=== PATIENT | female | born 1960 | race Caucasian/White ===

== ENCOUNTER → 2019-09-29 08:29 | Outpatient (BNVA) | payer OTHER, SELFPAY | PROVIDERS: Family Provider Nurse Practitioner; PCP Family Medicine; Visit Provider Specialist | DX: G43.711 Chronic migraine without aura, intractable, with status migrainosus (principal); F32.9 Major depressive disorder, single episode, unspecified; F17.210 Nicotine dependence, cigarettes, uncomplicated | CPT/HCPCS: 64615; J0585 ==

== ENCOUNTER → 2020-01-26 14:35 | Outpatient (BNVA) | payer OTHER, SELFPAY | PROVIDERS: Family Provider Nurse Practitioner; PCP Family Medicine; Visit Provider Specialist | DX: G43.711 Chronic migraine without aura, intractable, with status migrainosus (principal); F17.210 Nicotine dependence, cigarettes, uncomplicated | CPT/HCPCS: 64615; J0585 ==

== ENCOUNTER → 2020-04-26 13:30 | Outpatient (BNVA) | payer OTHER, SELFPAY | PROVIDERS: Family Provider Nurse Practitioner; PCP Nurse Practitioner; Visit Provider Specialist | DX: G43.711 Chronic migraine without aura, intractable, with status migrainosus (principal) | CPT/HCPCS: 64615; J0585 ==

== ENCOUNTER 2020-05-15 00:28 | Inpatient (IN) | payer OTHER, SELFPAY ==
[2020-05-15] VITALS (22 sets, daily range): BP systolic 81–132; BP diastolic 48–87; PULSE 65–112; RESP 12–20; TEMP 36.1–37.6; O2SAT 92–98; BMI 28.1
--- NOTE | 2020-05-15 | SCC_ITS ---
Procedure Done: Left open internal fixation distal comminuted 100% displaced supracondylar humerus fracture with intercondylar extension utilizing the following [place] implants: A 3 hole left posterior lateral distal humeral plate, a 3 hole left medial plate, and a 4 hole olecranon plate with locking and non-locking screws. 24.3 seconds of fluoroscopic guidance, for a cumulative dose of 0.33 mGy, was provided to Dr. Guillory by the radiology department. C-arm images of the LEFT elbow were saved for the patient's permanent record. BERTHA
--- NOTE | 2020-05-15 | XR_ITS ---
WS: [id number] INTRAOPERATIVE TECHNIQUE: 3 Spot fluoroscopic images for intraoperative purposes. FLUOROSCOPY TIME: 24.3 seconds CLINICAL INFORMATION: OR PICS COMPARISON: None. FINDINGS: Intraoperative changes plate and screw fixation distal humeral fracture with plate fixation involving the medial and lateral epicondyles. Olecranon plate and screw fixation. Screw fixation distal humeru s. Hardware appears in good position. Normal anatomic alignment. XR/XR elbow LT 2V [id number] IMPRESSION: Images obtained for intraoperative purposes.
--- NOTE | 2020-05-15 00:56 | ECG_ITS ---
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 Measurements Intervals [place] Rate: 65 P: 68 CT: 141 QRS: 65 QRSD: 93 T: 73 QT: 415 QTc: 433 Interpretive Statements SINUS RHYTHM POSSIBLE RIGHT VENTRICULAR CONDUCTION DELAY [RSR (QR) IN V1/V2] No previous ECG available for comparison Electronically Signed On 05-15-2020 17:26:03 CDT by Rolan Berg M.D. [id number]
--- NOTE | 2020-05-15 00:56 | XRR_ITS ---
PROCEDURE INFORMATION: Exam: XR Left Foot Complete Exam date and time: 05/15/2020 1:24 AM Age: 59 years old Clinical indication: Pain and injury or trauma; Fall; Initial encounter; Blunt trauma; Foot; Left; Injury date: 05/15/20 TECHNIQUE: Imaging protocol: XR Left foot. Views: Frontal, lateral, and oblique views. COMPARISON: No relevant prior studies available. FINDINGS: Bones/joints: No acute bony abnormality identified. Fifth DIP joint fusion, normal variant. Soft tissues: Normal. XR/XR foot LT min 3V* [id number] IMPRESSION: No acute bony injury identified.
--- NOTE | 2020-05-15 00:56 | XRR_ITS ---
PROCEDURE INFORMATION: Exam: XR Left Elbow Exam date and time: 05/15/2020 1:22 AM Age: 59 years old Clinical indication: Pain and injury or trauma; Fall; Initial encounter; Blunt trauma (contusions or hematomas; Elbow; Left; Injury date: 05/15/20 TECHNIQUE: Imaging protocol: XR Left elbow. Views: Frontal, lateral, and oblique views. COMPARISON: No relevant prior studies available. FINDINGS: Bones/joints: Oblique complete fracture of the supracondylar distal humerus, with 4.7 cm posterior displacement and approximately 3 cm of posterior overriding of the distal fragment, which maintains normal relationship with the radius and ulna. Soft tissues: Antecubital predominant soft tissue swelling. XR/XR elbow LT min 3V* [id number] IMPRESSION: Severely displaced distal humeral fracture. The displacement potentially impacts antecubital vascular structures. CT angiography should be considered.
--- NOTE | 2020-05-15 00:56 | CTR_ITS ---
PROCEDURE INFORMATION: Exam: CT Head Without Contrast Exam date and time: 05/15/2020 12:57 AM Age: 59 years old Clinical indication: Injury or trauma; Fall; Initial encounter; Blunt trauma (contusions or hematomas); With loss of consciousness; Not specified; Additional info: Head injury TECHNIQUE: Imaging protocol: Computed tomography of the head without contrast. Radiation optimization: All CT scans at this facility use at least one of these dose optimization techniques: automated exposure control; mA and/or kV adjustment per patient size (includes targeted exams where dose is matched to clinical indication); or iterative reconstruction. COMPARISON: MRI Head w/wo* [id number] 09/11/2015 1:17 PM RADIATION DOSE METRICS: Total DLP (mGy-cm): 822.28 FINDINGS: Brain: There are no areas of abnormally increased or decreased brain parenchymal attenuation. No abnormal intra-axial or extra-axial fluid collections are identified. There is no midline shift. No intracranial hemorrhage identified. Ventricles: The ventricular system is within normal limits for size and configuration. Bones/joints: Unremarkable as visualized. Sinuses: Visualized sinuses are unremarkable. No fluid levels. Mastoid air cells: Visualized mastoid air cells are well aerated. Soft tissues: Unremarkable. CT/CT head wo con* [id number] IMPRESSION: 1. No acute intracranial abnormality identified. Radiation Dose CTDIVOL = (mGy): DLP = 822.28 (mGy-cm)
--- NOTE | 2020-05-15 00:59 | W.ED.FALL ---
HPI - Fall General: Chief Complaint: Fall Stated Complaint: pain/ arm pain/ eye pain Time Seen by Provider: 05/15/20 00:53 Source: patient Mode of arrival: ambulatory Limitations: no limitations History of Present Illness: HPI Narrative: 59-year-old female states she got up to go to the bathroom tonight and felt lightheaded and passed out. Patient struck her head and has elbow and foot pain to the left elbow and left foot. She states her pain is sharp in nature and rates an 8 out of 10. She denies any neck pain. She denies any chest pain. She states she has had syncopal events in the past. 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, migraine, requiring Botox injections Dyslipidemia GERD (gastroesophageal reflux disease) Headache, chronic migraine without aura, intractable, with status Lyme disease Osteoporosis Seizure disorder Smoking Surgical History (Updated 05/15/20 @ 02:10 by Rolan Johnson MD) H/O: hysterectomy Family History Other Cancer Stroke Social History Smoking and tobacco status: current every day smoker Physical Exam Const: COMMON NORMALS: no acute distress, patient oriented x3 and healthy appearing HENMT: COMMON NORMALS: normocephalic HEAD & SCALP: normocephalic OTHER: small superficial less than 1cm lac to right eyelid Eye: COMMON NORMALS: Equal, round and reactive pupils present and EOMs intact bilaterally PUPIL: Yes Equal, round and reactive pupils present Neck/C-Spine: COMMON NORMALS: full ROM and supple Chest: COMMONS NORMALS: normal inspection of the chest and normal palpation of entire chest wall Resp: COMMON NORMALS: normal respiratory effort, No retractions, No use of accessory muscles and clear to auscultation bilaterally AUSCULTATION: clear to auscultation bilaterally Cardio: COMMON NORMALS: regular rate, regular rhythm and No murmurs present (Cardio) RATE: regular rate RHYTHM: regular rhythm GI: COMMON NORMALS: Normal to inspection, nondistended, normoactive bowel sounds present, Soft to palpation, non-tender and no masses PALPATION: Yes Soft to palpation Extremity: NARRATIVE EXTREMITY EXAM: obvious derformity to right elbow. distal pulses intact Neuro: COMMON NORMALS: patient oriented x3, moves all extremities and no focal motor deficits Psych: COMMON NORMALS: mental status grossly normal, Normal thought process present and cooperative THOUGHT PROCESS: Normal thought process present Skin: COMMON NORMALS: no rashes or lesions noted and no wounds GENERAL SKIN EXAM: no rashes or lesions noted Course Vital Signs: Vital signs: Vital Signs Temperature 97.0 F L 05/15/20 00:45 Pulse Rate 79 05/15/20 01:14 Respiratory Rate 16 05/15/20 01:14 Blood Pressure 129/74 05/15/20 01:14 Pulse Oximetry 97 05/15/20 01:14 MDM - Fall MDM Narrative: Medical decision making narrative: Patient presents with a syncopal event along with a distal humerus fracture to left arm. Patient has no signs of nerve or arterial damage. She has distal pulses intact and neuro exam is normal. She is able to extend her wrist and lift her thumb. She has sensation intact her hand. Patient did strike her head and head CT is normal. Head laceration is very superficial and small and does not require any sutures. I spoke to hospitalist will admit. Also spoke to orthopedist who is consulted. Lab Data: Labs: Lab Results 05/15/20 05/15/20 Range/Units 01:10 01:10 WBC 11.1 H (4.0-10.0) 10^3/ uL RBC 4.96 (4.1-5.3) 10^6/u L Hgb 14.1 (11.5-15.3) g/dL Hct 44.2 (37.0-47.0) % MCV 89.1 (81-99) fL MCH 28.4 (28.0-34.0) pg MCHC 31.9 (30.0-36.0) g/dL RDW 13.6 (12.1-15.1) % Plt Count 290 (130-400) 10^3/c mm MPV 9.5 (7.4-10.4) fL Neut % (Auto) 53.6 % Lymph % (Auto) 38.8 % Curry % (Auto) 5.4 % Eos % (Auto) 1.2 % Baso % (Auto) 0.5 % Neut # (Auto) 5.97 (1.8-7.7) 10^3/u L Lymph # (Auto) 4.3 (0.8-4.8) 10^3/u L Curry # (Auto) 0.6 (0.2-0.9) 10^3/u L Eos # (Auto) 0.1 (0.0-0.8) 10^3/u L Baso # (Auto) 0.1 (0.0-0.1) 10^3/u L Nucleated RBC % (a uto) 0 % Nucleated RBCs # 0.0 /100WBC Sodium 138 (136-145) mmol/L Potassium 3.4 L (3.5-5.1) mmol/L Chloride 98 (98-107) mmol/L Carbon Dioxide 29 (22-29) mmol/L Anion Gap 14.4 (5-19) BUN 22 H (6-20) mg/dL Creatinine 0.8 (0.5-0.9) mg/dL GFR Calculation 73.7 L (90-130) mL/min Glucose 124 H (65-115) mg/dL Calculated Osmolal ity 284 L (285-295) mOsm/k g Calcium 9.0 (8.5-10.5) mg/dL Imaging Data^: xr L elbow: Attestation: I personally reviewed and interpreted this imaging study as follows: My impression: distal humerus fx CT Head: Radiologist's impression: [address] [address] [address] Scan Report Signed Patient: Heydi Pereira Unit #: [id number] : 1960 Age/Sex: 59 / F ADM Date: 05/15/20 Loc: ER Room/Bed: Attending Dr: Ordering Provider/Ordering MD: Maury Braswell MD Date of Service: 05/15/20 Procedure(s): CT head wo con* [id number] Accession Number(s): [id number] Report Number: [id number] PROCEDURE INFORMATION: Exam: CT Head Without Contrast Exam date and time: 05/15/2020 12:57 AM Age: 59 years old Clinical indication: Injury or trauma; Fall; Initial encounter; Blunt trauma (contusions or hematomas); With loss of consciousness; Not specified; Additional info: Head injury TECHNIQUE: Imaging protocol: Computed tomography of the head without contrast. Radiation optimization: All CT scans at this facility use at least one of these dose optimization techniques: automated exposure control; mA and/or kV adjustment per patient size (includes targeted exams where dose is matched to clinical indication); or iterative reconstruction. COMPARISON: MRI Head w/wo* [id number] 09/11/2015 1:17 PM RADIATION DOSE METRICS: Total DLP (mGy-cm): 822.28 FINDINGS: Brain: There are no areas of abnormally increased or decreased brain parenchymal attenuation. No abnormal intra-axial or extra-axial fluid collections are identified. There is no midline shift. No intracranial hemorrhage identified. Ventricles: The ventricular system is within normal limits for size and configuration. Bones/joints: Unremarkable as visualized. Sinuses: Visualized sinuses are unremarkable. No fluid levels. Mastoid air cells: Visualized mastoid air cells are well aerated. Soft tissues: Unremarkable. CT/CT head wo con* [id number] IMPRESSION: 1. No acute intracranial abnormality identified EKG Data^: EKG 1: Attestation: I personally reviewed and interpreted this EKG as follows: EKG interpretation date: 05/15/20 EKG interpretation time: 01:04 Interpretation: Normal sinus rhythm heart rate [address] or T wave abnormalities QRS 93 QTc 426 Discharge Plan Discharge Patient Disposition: Admitted As Inpatient Admit Provider: Rolan Johnson Clinical Impression: Syncope Qualifiers: Syncope type: unspecified Qualified Code(s): R55 - Syncope and collapse Fracture of distal end of humerus Qualifiers: Encounter type: initial encounter Fracture type: closed Fracture morphology: unspecified fracture morphology Laterality: left Qualified Code(s): S42.402A - Unspecified fracture of lower end of left humerus, initial encounter for closed fracture Condition: Stable Referrals: Theresa Diez FNP [Primary Care Provider] - Coding Level of Care Code ED Yard General Car Supervisor for Chg Fwd Exam Comprehensive
[2020-05-15 01:21] LABS: Basophils # 0.1 10^3/uL (0.0-0.1); Basophils % 0.5 %; Eosinophils # 0.1 10^3/uL (0.0-0.8); Eosinophils % 1.2 %; Hematocrit 44.2 % (37.0-47.0); Hemoglobin 14.1 g/dL (11.5-15.3); Lymphocytes # 4.3 10^3/uL (0.8-4.8); Lymphocytes % 38.8 %; Mean Corpuscular HGB Conc 31.9 g/dL (30.0-36.0); Mean Corpuscular Hemoglobin 28.4 pg (28.0-34.0); Mean Corpuscular Volume 89.1 fL (81-99); Mean Platelet Volume 9.5 fL (7.4-10.4); Monocytes # 0.6 10^3/uL (0.2-0.9); Monocytes % 5.4 %; Neutrophils # 5.97 10^3/uL (1.8-7.7); Neutrophils % 53.6 %; Nucleated Red Blood Cells % 0 %; Platelet Count 290 10^3/cmm (130-400); Red Blood Count 4.96 10^6/uL (4.1-5.3); Red Cell Distribution Width 13.6 % (12.1-15.1); White Blood Count 11.1 10^3/uL (4.0-10.0)
[2020-05-15] MEDS: sodium chloride 0.9% 1,000 ML 999 ML IV (01:27)
[2020-05-15 01:37] LABS: Anion Gap 14.4 (5-19); Blood Urea Nitrogen 22 mg/dL (6-20); Carbon Dioxide 29 mmol/L (22-29); Chloride 98 mmol/L (98-107); Glomerular Filtration Rate 73.7 mL/min (90-130); Glucose 124 mg/dL (65-115); Osmolality Calculated 284 mOsm/kg (285-295); Potassium 3.4 mmol/L (3.5-5.1); Sodium 138 mmol/L (136-145)
[2020-05-15] MEDS: morphine 4 mg/mL SDV 1 mL IVP (01:44)
--- NOTE | 2020-05-15 02:09 | P.HP_ITS ---
Providers/Chief Complaint Primary Care Provider: MICHELE Chen Chief Complaint: fell/ arm pain/ eye pain History of Present Illness Heydi Pereira is a 59 year old female who carries history of intractable migraine requiring Botox injections, she failed multiple medications in the past ( Topamax, Celexa etc), Lyme disease sequelae with complications such as migraine, seizure came in today after sustaining a fall. Patient is stating that she was feeling nauseous around 11 PM after her dinner, she wanted to go to the bathroom, she passed out before entering her bathroom, she did not experience any chest pain, hallucinations, palpitations, shortness of breath, regained consciousness and noticed she was leaning against a wall and fell again on the floor on her left side, (has no memory of the events after that) she was moaning in pain, at this point her came to help her. is at the bedside who is endorsing that she was very confused and incoherent. He did not notice any seizure-like activities, urinary incontinence, tongue biting. Patient is stating that after her Lyme disease she had a grand mal seizure for which she was put on phenobarbital for quite some time which was discontinued due to side effects. Her last seizure was long time ago. She is denying fever, vomiting, change in bowel movements, dysuria. She is denying previous history of stroke, [place], coronary disease. Diagnostics in the ER revealed normal hemodynamics, EKG showing right bundle branch block otherwise sinus rhythm, imaging revealed left humeral fracture displaced, no vascular compromise of left arm, I have requested d-dimer and prolactin level, glucose 124 Dr. Guillory has been consulted Review of Systems Const: Reports: chills and body aches Eyes: Denies: change in vision ENMT: Denies: throat pain Card: Denies: chest pain Resp: Denies: dyspnea GI: Reports: nausea; Denies: abdominal pain or vomiting : Denies: flank pain Musc: Reports: extremity swelling, joint pain and muscle weakness Skin/Breast: Reports: new lesions (Bruising and petechiae of left foot); Denies: rash Neuro: Denies: headache(s) Psych: Denies: anxiety Endo: Denies: polyuria Thomas/Lymph: Denies: easy bruising All/Imm: Denies: urticaria Medications/Allergies Home Medications Medication Instructions Recorded Confirmed Last Taken Type albuterol sulfate 90 mcg/actuation 2 puff INHALATION Q6H PRN #8.5 gm 09/27/19 04/26/20 Unknown Rx aerosol inhaler duloxetine 20 mg capsule,delayed 20 mg PO ONCE cap 09/27/19 04/26/20 Unknown History release azithromycin 250 mg tablet 250 mg PO DAILY tab 09/29/19 04/26/20 Unknown History magnesium 250 mg tablet 500 mg PO DAILY tab 09/29/19 04/26/20 Unknown History niacin 500 mg tablet 250 mg PO DAILY tab 09/29/19 04/26/20 Unknown History Allergies Allergy/AdvReac Type Severity Reaction Status Date / Time No Known Allergies Allergy Verified 04/26/20 13:46 PFSH Acute PFSH: Medical History Cognitive complaints 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, migraine, requiring Botox injections Dyslipidemia GERD (gastroesophageal reflux disease) Headache, chronic migraine without aura, intractable, with status Lyme disease Osteoporosis Seizure disorder Smoking Surgical History H/O: hysterectomy Family History Other Cancer Stroke Social History Smoking and tobacco status: current every day smoker cigarettes [ Other cigarette details: Half a pack smoker ] Alcohol intake: never Substance/Drug Use: never Household members: spouse Housing: House Vitals/I&O/Wt Last Vital Signs Temp 97.0 F L 05/15/20 00:45 Pulse 79 05/15/20 01:14 Resp 16 05/15/20 01:14 BP 129/74 05/15/20 01:14 Pulse Ox 97 05/15/20 01:14 Weight last 48 hrs Weight 83.915 kg Physical Exam Narrative: EXAM NARRATIVE: Very pleasant middle-age female currently comfortable with arm sling on left side No vascular compromise of left arm, weak wrist extension S1, S2 no tachycardia heart failure Abdomen soft nontender nondistended bowel sound present EOMI, PERRLA No neurological deficit No tongue bite Lungs are clear to auscultation Lower extremity no edema gangrene or ulcer Left foot petechiae and bruises on dorsal side without any vascular compromise Appropriate mood and affect Patient is awake alert oriented x3 GCS 15 Data : 05/15/20 01:10 05/15/20 01:10 A&P Assessment and plan (1) Syncope: Status: Acute Qualifiers: Syncope type: unspecified Qualified Code(s): R55 - Syncope and collapse (2) Fracture of distal end of humerus: Status: Acute Qualifiers: Encounter type: initial encounter Fracture morphology: unspecified fracture morphology Fracture type: closed Laterality: left Qualified Code(s): S42.402A - Unspecified fracture of lower end of left humerus, initial encounter for closed fracture (3) Depression: Status: Inactive (4) Headache, chronic migraine without aura, intractable, with status: Status: Inactive Additional A&P Information Left humeral fracture after syncopal event Syncopal event most likely secondary to seizure (confusion noticed by her ), most likely post ictal phase Current glucose 124, sodium 138, no signs of dehydration, less likely to be vasovagal, CT head unremarkable EKG without any arrhythmia Right bundle branch block without significant interval changes I have requested d-dimer and prolactin level Patient not on any antiepileptics however has history of seizures in the past with Lyme disease sequelae Admit to [facility] I would use Ativan for breakthrough seizures and avoid initiation of antiepileptics at this point Patient is following up with Dr. Espinosa for her migraine Considering this syncopal event I would recommend an echocardiogram to rule out any wall motion abnormality which could have caused syncopal event, RCRI class I risk of complications Intractable migraine: Patient is following up with Dr. Espinosa for her Botox injections N.p.o. Hypokalemia: Repleted Full code DVT prophylaxis SCDs to avoid anticoagulation in anticipation of surgical intervention Attestations Medical Necessity Statement*: Anticipating stay in the hospital to cross more than 2 midnights currently need surgical intervention for humeral fracture and monitoring for breakthrough seizures Time Spent in Patient Care: (>than 50% of time spent in counselling and/or direct pt care on unit) . 40mins Coding Level of Care Code Acute Welder Setter Electron Beam Machine for Chg Fwd Diagnoses Syncope R55 Syncope type: unspecified Fracture of distal end of humerus S42.402A Encounter type: initial encounter Fracture morphology: unspecified fracture morphology Fracture type: closed Laterality: left Depression F32.9 Headache, chronic migraine without aura, intractable, with status G43.711
[2020-05-15 02:56] LABS: INR 0.97 (0.8-1.2)
[2020-05-15 02:59] LABS: D Dimer 2.34 ug/mIFEU (0-0.59)
[2020-05-15] MEDS: D5-NS 0.45% + KCL 20 mEq 20 MEQ/1,000 ML BAG 75 MEQ IV ×3 (03:07→23:57)
[2020-05-15 03:11] LABS: Prolactin 53.11 ng/mL (4.8-23.3)
[2020-05-15] MEDS: HYDROmorphone 1 mg/mL INJ 1 mL 2 MG IVP ×2 (04:01→09:52)
[2020-05-15 06:18] LABS: INR 1.03 (0.8-1.2)
[2020-05-15 06:19] LABS: Fibrinogen 420 mg/dL (174-498)
[2020-05-15 06:29] LABS: Anion Gap 10.8 (5-19); Blood Urea Nitrogen 17 mg/dL (6-20); Calcium 8.3 mg/dL (8.5-10.5); Carbon Dioxide 28 mmol/L (22-29); Chloride 102 mmol/L (98-107); Glomerular Filtration Rate 102.7 mL/min (90-130); Glucose 125 mg/dL (65-115); Osmolality Calculated 282 mOsm/kg (285-295); Potassium 3.8 mmol/L (3.5-5.1); Sodium 137 mmol/L (136-145)
[2020-05-15 06:30] LABS: Creatine Phosphokinase 430 U/L (26-192)
[2020-05-15 06:48] LABS: Platelet Count 290 10^3/cmm (130-400)
[2020-05-15 07:01] LABS: Thyroid Stimulating Hormone 1.46 uIU/mL (0.27-4.20)
--- NOTE | 2020-05-15 07:30 | CT_ITS ---
WS: [id number] NONCONTRAST CT LEFT ELBOW TECHNIQUE: Noncontrast CT left elbow with coronal and sagittal reformatted images. CLINICAL INFORMATION: Further characterization of fracture COMPARISON: None. DLP: 2197.[address] scans at [facility] use at least one of these dose optimization techniques: automat ed exposure control; mA and/or kV adjustment per patient size (includes targeted exams where dose is matched to clinical indication); or iterative reconstruction. FINDINGS: Comminuted fracture of the distal humerus with anterior displacement of the proximal humeral fragment . Fracture displacement measures approximately 3.1 CM. Normal radial head and neck. Additional commin uted fracture involving the medial epicondyle. This extends to the olecranon fossa. Normal lateral ep icondyle. Normal coronoid process. Capitellum and trochlea appear normal. Soft tissue edema. Joint effusion. CT/CT elbow LT wo con* [id number] IMPRESSION: 1. Comminuted anterior displaced fracture involving the distal humerus. Anteri or displacement of the proximal fragment relative to the elbow. 2. Additional comminuted fracture involving the medial epicondyle. Capitellum and trochlea appear normal. 3. Normal coronoid process. Normal olecranon fossa. 4. Normal radial head and neck. 5. Soft tissue edema and joint effusion.
--- NOTE | 2020-05-15 07:41 | PC.NURSE ---
patient has abrasion noted to right eye with steri strip applied, bruise noted to left anterior foot and left upper extremity. Patient denies pain except with movement of left arm. patient reports bowel movement yesterday before fall. patient's call light within reach. patient dozing off during assessment. patient NPO for possible surgery. program writer spoke with Dr Guillory and she said she wanted STAT CT. Commercial Pest Control Technician changed order to STAT as requested. Dr Guillory also said patient needs to be seen by Dr Portillo prior to surgery. patient has history of seizures. program writer padded rails and suction in room.
--- NOTE | 2020-05-15 08:15 | P.PN_ITS ---
Subjective Subjective: Interval history: Patient reports that she was going to the bathroom when she became very nauseous and lightheaded. Reports that she tried to hold herself to avoid fall. She was able to lower herself initially but then when she tried to get up she lost her consciousness. Reports when she came to she recognized surroundings and was able to call her for help. Reports that yesterday she spent most of the day outside and reports that it was very hot. 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 She denies ever getting short of breath are chest pains with exertion. Denies being diabetic or having previous history of heart disease. Reports that her last seizure episode was more than 3 years ago. She denies dysuria or abdominal pain. She did not urinate yet since her admission. Her left elbow is in sling. Discussed with Dr. Guillory this morning and plan to proceed with CT scan and then likely surgery. Vitals/I&O/Wt Last Vital Signs Temp 98.0 F 05/15/20 05:00 Pulse 70 05/15/20 05:00 Resp 16 05/15/20 05:00 BP 96/62 05/15/20 05:00 Pulse Ox 92 05/15/20 05:00 05/14/20 05/15/20 05/15/20 22:59 06:59 14:59 Intake Total 0 / 0 Balance 0 / 0 Weight last 48 hrs Weight 83.915 kg Physical Exam Const: COMMON NORMALS: no acute distress and patient oriented x3 OTHER: Mucous membranes are dry. Resp: COMMON NORMALS: normal respiratory effort and clear to auscultation bilaterally AUSCULTATION: clear to auscultation bilaterally Cardio: COMMON NORMALS: regular rate, regular rhythm and S2 normal heart sound present RATE: regular rate RHYTHM: regular rhythm HEART SOUNDS: S2 normal heart sound present OTHER: No lower extremity edema GI: COMMON NORMALS: Normal to inspection, nondistended, normoactive bowel sounds present, Soft to palpation and non-tender PALPATION: Yes Soft to palpation Neuro: COMMON NORMALS: patient oriented x3 and no focal motor deficits Data : 05/15/20 05:35 05/15/20 05:35 A&P Assessment and plan (1) Syncope: This appears to be orthostatic in origin secondary to dehydration Status: Acute Qualifiers: Syncope type: unspecified Qualified Code(s): R55 - Syncope and collapse (2) Fracture of distal end of humerus: Status: Acute Qualifiers: Encounter type: initial encounter Fracture morphology: unspecified fracture morphology Fracture type: closed Laterality: left Qualified Code(s): S42.402A - Unspecified fracture of lower end of left humerus, initial encounter for closed fracture (3) Depression: Status: Inactive (4) Headache, chronic migraine without aura, intractable, with status: Status: Inactive Additional A&P Information Dehydration, present on admission Tobacco abuse with dependence. Patient smokes half pack per day Intractable migraine: Patient is following up with Dr. Espinosa for her Botox injections N.p.o. Hypokalemia: Repleted Full code DVT prophylaxis SCDs to avoid anticoagulation in anticipation of surgical inter vention PLAN: Patient has low risk for adverse perioperative cardiac outcome and no further cardiac evaluation is needed prior to surgery. This was discussed with patient and she agrees to proceed. We will place Rivera catheter in and check for urine tract infection. We will increase fluids to 125 ML/h and monitor urinary output. Seizure precautions although clinically patient does not appear to have seizure despite elevated prolactin level. Discussed extensively regarding importance of smoking cessation. Patient voiced understanding and reports that she will try quitting without pharmacological help although reports she has everything at home to use if needed. Attestations Medical Necessity Statement*: Patient with syncopal episode post fall requires close inpatient monitoring and treatment including elbow surgery. Time Spent in Patient Care: 16 - 35 minutes Coding Level of Care Code Acute Block Chopper Hand for Renzo Himanshu Diagnoses Syncope R55 Syncope type: unspecified Fracture of distal end of humerus S42.402A Encounter type: initial encounter Fracture morphology: unspecified fracture morphology Fracture type: closed Laterality: left Depression F32.9 Headache, chronic migraine without aura, intractable, with status G43.711
--- NOTE | 2020-05-15 09:55 | PC.NURSE ---
Patient has order for foot pumps, SCD's were in place when assessment was completed.
--- NOTE | 2020-05-15 10:32 | PC.NURSE ---
patient taken to OR via bed
--- NOTE | 2020-05-15 10:37 | PC.CHAP ---
Pastoral Care Encounter/Spiritual Assessment Type of Contact [] Declined advanced seal delivery system visit [] Patient/Family/Request visit [] Outpatient visit [x] Follow-up visit [] Physician referral [] Code/Alert [] Routine visit [] Staff referral [] Actively dying [] Patient sleeping [] Family support [] [] Out of room [] Palliative care [] [] Receiving care in room [] Pre-surgical visit [] Trauma [] Long length of stay [] ICU visit [x] Other: with staff Relational/Emotional Strength [] Patient feels connected with others/family/visitors/staff [] Distress [] Loneliness/isolation [] Abandonment Spirituality of Patient [] Person of Marni [] Attends Temple of their Marni [] Believes in Prayer [] Reads Bible or Samaritan materials [] There are Spiritual issues to be addressed Hogshead Stripper Interventions [] Prayer [] Active listening [] Non-anxious presence [] Spiritual/emotional support [] Crisis/trauma care [] Spiritual counseling [] Bereavement support [] Provided bereavement packet [] Provided Bible/devotional materials [] Provided toy/stuffed animal, coloring book to patient or family member [] Provided Communion [] Anointing/[place] [] Salvation [] Completed spiritual assessment [] Other: Impact on Illness or Injury [] Angry [] Fearful [] Anxious [] Often cries [] Exhaustion [] Unable to work [] Unable to attend yarsanism [] Unable to walk/stand [] Unable to read [] Unable to drive [] Unable to eat/drink [] Unable to sleep [] Unable to be with family [] Patient intubated [] Other: Summary with staff Time spent with patient 5 mins
--- NOTE | 2020-05-15 10:45 | ANES.PREANE2 ---
Pre-Anesthetic Assessment Pre-Anesthetic Assessment: Height/Weight: Height 1.73 m Weight 83.915 kg Temp Pulse Resp BP Pulse Ox 98.2 F 68 16 93/63 98 05/15/20 08:00 05/15/20 08:00 05/15/20 09:52 05/15/20 08:00 05/15/20 08:00 Preop Diagnosis: Left distal humerus fracture Proposed Procedure: Operation Date: 05/15/20 14:45 Proposed Procedures p ORIF Distal Humerus(Left) - Margarita Guillory MD Familial anesthetic complications: None Was Beta Shan taken within 24 hours: N/A Last intake: Intake Last Liquid Date 05/14/20 Last Liquid Time 20:00 Last Solid Date 05/14/20 Last Solid Time 20:00 Social: Social History: Tobacco and No alcohol Exam: Pre-Anes Outpt Exam: alert, oriented x 3, clear to auscultation bilaterally and regular rate & rhythm Airway: Cervical ROM: WNL (trouble turning left and right) MP: 3 Dentition: Chipped and Other (missing) Pulmonary: Pulmonary: Cough CV/HEM: CV/HEM: HTN Neuropsych: Neuropsych: Seizure (last one > 5 years, occured after lymes disease) Anesthetic Plan: Anesthesia: General and Regional (specify below) Risk of > 500 ml blood loss (7ml/kg in children): No Meds/Allergies Current Medications: Current Medications Generic Name Dose Route Start Last Admin Trade Name Freq PRN Reason Stop Dose Admin Hydromorphone HCl 2 mg 05/15/20 02:54 05/15/20 09:52 Dilaudid Inj IVP 2 mg Q4H PRN Administration Humeral fracture pain Potassium Chloride /Dextrose/Sod Cl 20 meq in 1,000 m ls @ 125 mls/hr 05/15/20 02:54 05/15/20 03:07 D5-Ns 0.45% + Mina l 20 Meq IV 75 mls/hr .Q8H MALI Administration Senna/Docusate Sod ium 1 tab 05/15/20 09:00 05/15/20 09:53 Senna-S PO Not Given DAILY MALI PFSH Anesthesia PFSH: Medical History Cognitive complaints 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, migraine, requiring Botox injections Dyslipidemia GERD (gastroesophageal reflux disease) Headache, chronic migraine without aura, intractable, with status Lyme disease Osteoporosis Seizure disorder Smoking Surgical History H/O: hysterectomy Family History Other Cancer Stroke Social History Smoking and tobacco status: current every day smoker cigarettes [ Other cigarette details: Half a pack smoker ] Alcohol intake: never Substance/Drug Use: never Household members: spouse Housing: House Data Anesthesia CBC & Chem 7: 05/15/20 05:35 05/15/20 05:35 Other Labs: Laboratory Results - last 48 hr 05/15/20 05/15/20 05/15/20 01:10 01:10 01:10 WBC 11.1 H RBC 4.96 Hgb 14.1 Hct 44.2 MCV 89.1 MCH 28.4 MCHC 31.9 RDW 13.6 Plt Count 290 MPV 9.5 Neut % (Auto) 53.6 Lymph % (Auto) 38.8 [facility] % (Auto) 5.4 Eos % (Auto) 1.2 Baso % (Auto) 0.5 Neut # (Auto) 5.97 Lymph # (Auto) 4.3 [facility] # (Auto) 0.6 Eos # (Auto) 0.1 Baso # (Auto) 0.1 Nucleated RBC % (auto) 0 Nucleated RBCs # 0.0 PT 13.20 INR 0.97 APTT Fibrinogen D-Dimer 2.34 H Sodium 138 Potassium 3.4 L Chloride 98 Carbon Dioxide 29 Anion Gap 14.4 BUN 22 H Creatinine 0.8 GFR Calculation 73.7 L Glucose 124 H Calculated Osmolality 284 L Calcium 9.0 Creatine Kinase TSH Prolactin 05/15/20 05/15/20 05/15/20 01:10 05:35 05:35 WBC RBC Hgb Hct MCV MCH MCHC RDW Plt Count MPV Neut % (Auto) Lymph % (Auto) [facility] % (Auto) Eos % (Auto) Baso % (Auto) Neut # (Auto) Lymph # (Auto) [facility] # (Auto) Eos # (Auto) Baso # (Auto) Nucleated RBC % (auto) Nucleated RBCs # PT INR APTT Fibrinogen D-Dimer Sodium 137 Potassium 3.8 Chloride 102 Carbon Dioxide 28 Anion Gap 10.8 BUN 17 Creatinine 0.6 GFR Calculation 102.7 Glucose 125 H Calculated Osmolality 282 L Calcium 8.3 L Creatine Kinase 430 H* TSH 1.46 Prolactin 53.11 H 05/15/20 05:35 WBC RBC Hgb Hct MCV MCH MCHC RDW Plt Count 290 MPV Neut % (Auto) Lymph % (Auto) [facility] % (Auto) Eos % (Auto) Baso % (Auto) Neut # (Auto) Lymph # (Auto) [facility] # (Auto) Eos # (Auto) Baso # (Auto) Nucleated RBC % (auto) Nucleated RBCs # PT 13.80 INR 1.03 APTT 29.0 Fibrinogen 420 D-Dimer Sodium Potassium Chloride Carbon Dioxide Anion Gap BUN Creatinine GFR Calculation Glucose Calculated Osmolality Calcium Creatine Kinase TSH Prolactin Cardiac Studies: No Data to Display
--- NOTE | 2020-05-15 10:47 | P.CONIM_ITS ---
Providers/Reason For Consult Consulting Physican/Specialty*: Margarita Guillory MD - Orthopedics Reason for Consult*: Left Elbow Fracture Requesting Physcian: Dr. Maury Braswell - Emergency Department Attending Physician: Fracisco Portillo MD Primary Care Provider: MICHELE Chen History of Present Illness History of Present Illness Heydi Pereira is a 59 year old female who presented to the emergency department early this morning complaining of left elbow pain after a fall. The patient notes that she was feeling nauseous. She wanted to go to the bathroom, but she passed out before entering the bathroom. According to the patient, she did not have any chest pain, hallucinations, palpitations, shortness of breath, or other issue, but she does have a history of intractable migraines requiring Botox injections. She also has a history of Lyme disease and states that following her diagnosis of Lyme disease, she had a grand mal seizure and she was on phenobarbital for quite some time but this was discontinued secondary to side effects. She has not had a recent seizure. The patient regained consciousness, but she has no memory of the events after that, and fortunately, her came to help her. There was no seizure-like activity when he presented to help her, and there was no evidence of urinary incontinence. She was evaluated in the emergency department and admitted to the medical service for further work-up of this syncopal event. Review of Systems Const: Reports: chills and body aches; Denies: fever(s) or change in appetite Eyes: Denies: change in vision, blurry vision, photophobia or eye discomfort ENMT: Denies: throat pain or dental pain Card: Denies: chest pain Resp: Denies: dyspnea GI: Reports: nausea; Denies: abdominal pain, vomiting or diarrhea : Denies: flank pain or dysuria Musc: Reports: extremity swelling, joint pain and muscle weakness Skin/Breast: Reports: new lesions (Bruising and petechiae of left foot); Denies: rash Neuro: Denies: headache(s) Psych: Denies: anxiety or depression Endo: Denies: polyuria Thomas/Lymph: Denies: easy bruising All/Imm: Denies: urticaria Meds/Allergies Home Medications and Allergies Home Medications Medication Instructions Recorded Confirmed Last Taken Type magnesium 250 mg tablet 250 mg PO DAILY tab 09/29/19 05/15/20 05/14/20 18:00 History niacin 500 mg tablet 250 mg PO DAILY tab 09/29/19 05/15/20 05/14/20 18:00 History duloxetine 60 mg PO DAILY 05/15/20 05/15/20 05/14/20 18:00 History hydrochlorothiazide 25 mg PO DAILY 05/15/20 05/15/20 05/14/20 18:00 History Allergies Allergy/AdvReac Type Severity Reaction Status Date / Time No Known Allergies Allergy Verified 04/26/20 13:46 Current Medications Current Medications Generic Name Dose Route Start Last Admin Trade Name Freq PRN Reason Stop Dose Admin Hydromorphone HCl 2 mg 05/15/20 02:54 05/15/20 09:52 Dilaudid Inj IVP 2 mg Q4H PRN Administration Humeral fracture pain Potassium Chloride/Dextrose/Sod Cl 20 meq in 1,000 mls @ 125 mls/hr 05/15/20 02:54 05/15/20 03:07 D5-Ns 0.45% + Kcl 20 Meq IV 75 mls/hr .Q8H MALI Administration Senna/Docusate Sodium 1 tab 05/15/20 09:00 05/15/20 09:53 Senna-S PO Not Given DAILY MALI PFSH Acute PFSH: Medical History Cognitive complaints 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, migraine, requiring Botox injections Dyslipidemia GERD (gastroesophageal reflux disease) Headache, chronic migraine without aura, intractable, with status Lyme disease Osteoporosis Seizure disorder Smoking Surgical History H/O: hysterectomy Family History Other Cancer Stroke Social History Smoking and tobacco status: current every day smoker cigarettes [ Other cigarette details: Half a pack smoker ] Alcohol intake: never Substance/Drug Use: never Household members: spouse Housing: House Vitals/I&O/Wt Last Vital Signs Temp 97.8 F 05/15/20 10:45 Pulse 65 05/15/20 10:45 Resp 18 05/15/20 10:45 BP 94/65 05/15/20 10:45 Pulse Ox 92 05/15/20 10:45 05/14/20 05/15/20 05/15/20 22:59 06:59 14:59 Intake Total 0 / 0 Output Total 400 / 400 Balance 0 / 0 -400 / -400 Weight last 48 hrs Weight 185 lb Physical Exam Const: COMMON NORMALS: no acute distress, average body habitus, patient oriented x3 and alert GENERAL APPEARANCE: cooperative ORIENTA TION/CONSCIOUSNESS: Yes awake HENMT: COMMON NORMALS: normocephalic and atraumatic HEAD & SCALP: normocephalic and atraumatic Eye: GENERAL EYE: appearance normal, both eyes and all related structures Chest: COMMONS NORMALS: normal inspection of the chest Resp: COMMON NORMALS: normal respiratory effort EFFORT & INSPECTION: Yes able to speak in complete sentences and Yes symmetric chest movement Extremity: GENERAL: Yes normal exam except as noted LEFT UPPER EXTREMITY: Yes elbow joint (The patient presents in only a sling, no splint is present at the time of my evaluation. She has significant ecchymosis, and discomfort with any movement.) Left elbow: Yes inspection (There is swelling and ecchymosis about the elbow.), Yes palpation (Tenderness to palpation distally.), Yes ROM (Not evaluated secondary to fracture.) and Yes neurovascular exam (At the time of my evaluation, the radial and median nerve appear intact both with sensory and motor functions.) Neuro: COMMON NORMALS: patient oriented x3 SENSORIUM/ORIENTATION: Yes alert Psych: COMMON NORMALS: mental status grossly normal APPEARANCE: Yes grossly normal ATTITUDE: Yes calm and Yes engaged ATTENTION/CONCENTRATION: Yes attention grossly intact Skin: COMMON NORMALS: no rashes or lesions noted GENERAL SKIN EXAM: no rashes or lesions noted Urinary Catheter Management^: Rivera: Cath Placed During This Visit: yes Reason for Continuing Indwelling Catheter: Perioperative Use in Selected Surgeries Urinary Catheter Date of Insertion: 05/15/20 Urinary Catheter Time of Insertion: 09:30 Data Imaging^: Other CT: I personally reviewed and interpreted this imaging study as follows: My impression: I have personally reviewed the CT scan, and the fracture is primarily supracondylar and distal femoral shaft, but it does involve the olecranon fossa. There is also question of whether or not it extends into the intercondylar area. This will be treated as a distal humerus fracture with intercondylar extension. Xray Ortho: I personally reviewed and interpreted this imaging study as follows: My impression: There is a distal humerus fracture primarily supracondylar in its configuration, but there is question of extension into the intercondylar area. A&P Assessment and plan (1) Supracondylar fracture of left humerus with intercondylar extension: Patient has a supracondylar left humerus fracture which is closed, but which has apparent intercondylar extension. Today, she is alert and oriented. She has been worked up by the medical service and optimized for surgical intervention at this time. CT is reviewed as well. The patient will need to undergo open reduction internal fixation of her left distal humerus fracture. We will approach this from an olecranon osteotomy standpoint as this will give us the best opportunity to evaluate the intercondylar area. This is explained to the patient. She understands and agrees. Status: Acute Consult Attestations Medical Necessity Statement: Patient was admitted following a syncopal event with a complex distal humerus fracture. She will require a minimum of 2 inpatient midnights. Coding Level of Care Code Acute Circulation Manager for [facility] Fwd Exam Comprehensive Diagnoses Supracondylar fracture of left humerus with intercondylar extension S42.492A
--- NOTE | 2020-05-15 10:47 | PC.NURSE ---
UA was not sent to lab yet. copywriter's mistake.
[2020-05-15] MEDS: sodium chloride 0.9% 1,000 ML 30 ML IV (11:07)
--- NOTE | 2020-05-15 11:08 | ANES.PROC ---
Anesthesia Procedures Procedure/Date: 05/15/20 Nerve Block ^: Nerve Block 1: Main Anesthesia: general anesthesia Time Out Performed: Yes Consent: requested by attending/covering physician, from patient, risks and benefits reviewed and patient agrees to proceed Nerve block location: supraclavicular (L) Anesthesia monitors applied: pulse oximetry and oxygen Nerve block position: semi sitting Anesthetic Used: ropivicaine 0.5% and with decadron (4 mg) Amount of anesthesia used (mL): 30 Ultrasound used to: recognize landmarks Nerve Stimulator Used?: No Interscalene/Femoral BLK: 4 stimuplex 21 g needle used for position and inplane approach, visualize local anesthetic spread and no vascular puncture identified Injection: neg aspiration of heme Patient Tolerated Procedure: well and no complications Complications: none
[2020-05-15] MEDS: ceFAZolin 1,000 mg SDV 1000 MG IRRIGATION (12:20)
--- NOTE | 2020-05-15 15:03 | SUR.PHASEI ---
PT SLEEPS QUIETLY, WITH GOOD RESP EFFORT NO S/S OF PAIN, PT AWAKES TO TOUCH, BUT QUICKLY BACK TO SLEEP,VSS.PT HAD A SUPRACLAVICULAR BLOCK TO LT ARM PER SURGERY
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
--- NOTE | 2020-05-15 15:19 | SUR.PHASEI ---
PT AWAKES TO VOICE, DENIES PAIN VSS PT UNABLE TO MOVE LT HAND , STATED PREVIOUSLY PT HAD A BLOCK PLACED PRIOR TO SURGERY. DRESSING D/I SLING IN PLACE.
[2020-05-15] MEDS: acetaminophen 500 mg Tablet 1000 MG PO (16:15)
[2020-05-15 16:43] LABS: Add Urine Microscopic? YES; Bilirubin Urine Neg (NEGATIVE); Blood Urine 3+ (Negative); Glucose Urine UA Norm (Normal); Ketones Urine Negative (Negative); Leukocyte Esterase Urine Negative (Negative); Nitrate Urine Negative (Negative); Protein Urine Neg (Negative); Specific Gravity, Urine 1.015 (1.005-1.030); Urine Appearance Clear (CLEAR); Urine Color Yellow (Yellow); Urobilinogen Urine Norm (Negative); pH Urine 5 (5-7)
[2020-05-15 16:57] LABS: Add Urine Culture? No; Bacteria Urine TRACE; RBC Urine 0-4 /hpf (0-2); Squamous Epithelial Cell Urine 0-4 (0-5)
[2020-05-15] MEDS: CELEcoxib 200 mg Capsule PO (17:27)
[2020-05-16] MEDS: acetaminophen 500 mg Tablet 1000 MG PO ×2 (00:07→10:44)
--- NOTE | 2020-05-16 03:15 | PC.NURSE ---
Prior to admit Dr Johnson cancelled splint stating that splinting my farther injure the pt. Pt remained in sling with all SMCs intact upon admission.
[2020-05-16 04:00] VITALS: BP 86/52; PULSE 74; RESP 20; TEMP 36.5; O2SAT 94
[2020-05-16 07:31] VITALS: BP 94/60; PULSE 68; RESP 18; TEMP 36.6; O2SAT 99
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
[2020-05-16] MEDS: duloxetine 60 mg Capsule PO (10:44)
[2020-05-16] MEDS: CELEcoxib 200 mg Capsule PO (10:44)
[2020-05-16] MEDS: D5-NS 0.45% + KCL 20 mEq 20 MEQ/1,000 ML BAG 75 MEQ IV (10:44)
[2020-05-16] MEDS: sennosides-docusate Tablet 1 TAB PO (10:44)
[2020-05-16] MEDS: hydroCHLOROthiazide 25 mg Tablet PO (10:44)
[2020-05-16] MEDS: aspirin 325 mg EC Tablet PO (10:44)
[2020-05-16 11:08] VITALS: BP 104/68; PULSE 84; RESP 18; TEMP 36.6; O2SAT 95
--- NOTE | 2020-05-16 11:23 | PC.NURSE ---
Oxygen saturation 93% on RA with exertion, denies shortness of breath.
--- NOTE | 2020-05-16 12:50 | PC.NURSE ---
Island dressing and fawn wrap applied to left upper arm per Dr. Guillory's orders, patient denies pain. Able to wiggle fingers to left hand. Radial pulses 3+ bilaterally.
--- NOTE | 2020-05-16 14:07 | PM.PN ---
Subjective Subjective: Interval history: The patient is doing well. She is alert and much more comfortable. Her dressing is removed. She is comfortable even following this. She is in great spirits and hopes to be discharged home today. Vitals/I&O/Wt Last Vital Signs Temp 97.8 F 05/16/20 11:08 Pulse 84 05/16/20 11:08 Resp 18 05/16/20 11:08 BP 104/68 05/16/20 11:08 Pulse Ox 95 05/16/20 11:08 05/15/20 05/16/20 05/16/20 22:59 06:59 14:59 Intake Total 1994 / 2744 687.5 / 3432.5 1408.75 / 1408.75 Output Total 999 / 1999 1600 / 3600 600 / 600 Balance 995 / 745 -912.5 / -167.5 808.75 / 808.75 Weight last 48 hrs Weight 185 lb Physical Exam Const: COMMON NORMALS: no acute distress, average body habitus, patient oriented x3 and alert GENERAL APPEARANCE: cooperative ORIENTATION/CONSCIOUSNESS: Yes awake HENMT: COMMON NORMALS: normocephalic and atraumatic HEAD & SCALP: normocephalic and atraumatic Eye: GENERAL EYE: appearance normal, both eyes and all related structures Chest: COMMONS NORMALS: normal inspection of the chest Resp: COMMON NORMALS: normal respiratory effort EFFORT & INSPECTION: Yes able to speak in complete sentences and Yes symmetric chest movement Extremity: GENERAL: Yes normal exam except as noted LEFT UPPER EXTREMITY: Yes elbow joint (The patient is in a postoperative splint. This is removed prior to my evaluation of her today. She is status post open reduction internal fixation.) Left elbow: Yes inspection (There is bruising and swelling as anticipated both pre-and postoperative swelling. The patient is minimally uncomfortable, however.), Yes palpation (There is minimal tenderness to palpation about the elbow.), Yes ROM (Gentle range of motion is not particularly uncomfortable for the patient.), Yes neurovascular exam (Neurovascular status is intact distal to the patient's fracture. She is able to flex and extend the fingers, she has good abduction and adduction of the fingers. Sensation appears normal.) and Yes other (The wound is benign with no drainage.) Neuro: COMMON NORMALS: patient oriented x3 SENSORIUM/ORIENTATION: Yes alert Psych: COMMON NORMALS: mental status grossly normal APPEARANCE: Yes grossly normal ATTITUDE: Yes calm and Yes engaged ATTENTION/CONCENTRATION: Yes attention grossly intact Skin: COMMON NORMALS: no rashes or lesions noted GENERAL SKIN EXAM: no rashes or lesions noted Urinary Catheter Management^: Rivera: Cath Placed During This Visit: yes, but has since been removed by the nurse Reason for Continuing Indwelling Catheter: Perioperative Use in Selected Surgeries Urinary Catheter Date of Insertion: 05/15/20 Urinary Catheter Time of Insertion: 11:20 Date Urinary Catheter Removed: 05/16/20 Time Urinary Catheter Discontinued: 06:35 Data : 05/15/20 05:35 05/15/20 05:35 A&P Additional A&P Information Patient underwent open reduction internal fixation of the left elbow yesterday. This was a very complex comminuted fracture. Today, she is seen, and she is neurologically intact. She is doing well. From her perspective she is ready for discharge home. Her splint is removed, and I have sent the splint with her to be used to rest the arm. Otherwise, she will be in an Cayetano wrap and a sling. Patient is advised that she is to begin gentle range of motion. This will be reinforced by the physical therapist prior to her discharge. She is to follow-up with me in 2 to 3 weeks. Attestations Medical Necessity Statement*: Patient required inpatient admission for pain management, surgical intervention with a very complex elbow fracture, and monitoring of her neurovascular status Coding Level of Care Code Acute Laborer Vegetable Farm for [employer]
--- NOTE | 2020-05-16 14:14 | PC.CHAP ---
Pastoral Care Encounter/Spiritual Assessment Type of Contact [] Declined electrical intern visit [] Patient/Family/Request visit [] Outpatient visit [] Follow-up visit [] Physician referral [] Code/Alert [X] Routine visit [] Staff referral [] Actively dying [] Patient sleeping [] Family support [] [] Out of room [] Palliative care [] [] Receiving care in room [] Pre-surgical visit [] Trauma [] Long length of stay [] ICU visit [] Other: Relational/Emotional Strength [] Patient feels connected with others/family/visitors/staff [] Distress [] Loneliness/isolation [] Abandonment Spirituality of Patient [] Person of Marni [] Attends Lutheran of their Marni [] Believes in Prayer [] Reads Bible or Judaism materials [] There are Spiritual issues to be addressed Director Gift Interventions [] Prayer [] Active listening [] Non-anxious presence [] Spiritual/emotional support [] Crisis/trauma care [] Spiritual counseling [] Bereavement support [] Provided bereavement packet [] Provided Bible/devotional materials [] Provided toy/stuffed animal, coloring book to patient or family member [] Provided Communion [] Anointing/[place] [] Salvation [] Completed spiritual assessment [] Other: Impact on Illness or Injury [] Angry [] Fearful [] Anxious [] Often cries [] Exhaustion [] Unable to work [] Unable to attend restorationism [] Unable to walk/stand [] Unable to read [] Unable to drive [] Unable to eat/drink [] Unable to sleep [] Unable to be with family [] Patient intubated [] Other: Summary Time spent with patient
[2020-05-16 14:56] VITALS: RESP 16
[2020-05-16] MEDS: oxyCODONE 5 mg IR Tab/Cap PO (14:56)
--- NOTE | 2020-05-16 15:17 | P.DS_ITS ---
Discharge Providers Date of Admission: 05/15/20 01:52 Date of Discharge: May 16, 2020 Attending Provider at Admission: Rolan Johnson MD Attending Provider at Discharge: Fracisco Portillo MD Primary Care Provider: MICHELE Chen Diagnoses at Discharge Discharge Diagnosis (1) Supracondylar fracture of left humerus with intercondylar extension: Status: Acute Reason for Visit Reason for Visit: fell/ arm pain/ eye pain Hospital Course Discharge Summary: Patient presented post fall and left wrist trauma. Her fall felt to be related to significant dehydration. Patient was admitted and hydrated with IV fluids and underwent surgical repair. This morning she denies any shortness of breath or chest pain. Denies any abdominal pain and feels strong enough to be dismissed home. Patient was started on Celebrex as well as aspirin for DVT prophylaxis and I will add Protonix for GI protection. Hydrochlorothiazide will be discontinued to decrease chance of dehydration. We had extensive discussion regarding importance of appropriate hydration especially when she spends time outside. Patient voiced understanding. Physical Exam Const: COMMON NORMALS: no acute distress and patient oriented x3 Resp: COMMON NORMALS: normal respiratory effort and clear to auscultation bilaterally AUSCULTATION: clear to auscultation bilaterally Cardio: COMMON NORMALS: regular rate, regular rhythm and S2 normal heart sound present RATE: regular rate RHYTHM: regular rhythm HEART SOUNDS: S2 normal heart sound present OTHER: No lower extremity edema GI: COMMON NORMALS: Normal to inspection, nondistended, normoactive bowel sounds present, Soft to palpation and non-tender PALPATION: Yes Soft to palpation Neuro: COMMON NORMALS: patient oriented x3 and no focal motor deficits Urinary Catheter Management^: Rivera: Cath Placed During This Visit: yes, but has since been removed by the nurse Reason for Continuing Indwelling Catheter: Perioperative Use in Selected Surgeries Urinary Catheter Date of Insertion: 05/15/20 Urinary Catheter Time of Insertion: 11:20 Date Urinary Catheter Removed: 05/16/20 Time Urinary Catheter Discontinued: 06:35 Discharge Data Data Completed and Pending: Completed Studies During Hospitalization Category Date Time Status CT elbow LT wo co n* [id number] Stat Cat Scan 05/15/20 07:[address] head wo con* 7 0450 Urgent Cat Scan 05/15/20 00:56 Completed XR elbow LT 2V 73 070 Routine Exams 05/15/20 Completed XR elbow LT min 3 V* [id number] Stat Exams 05/15/20 00:56 Completed XR foot LT min 3V * [id number] Stat Exams 05/15/20 00:56 Completed Pending at discharge Category Date Time Status CV echo complete* [id number] Routine Ultrasound 05/16/20 02:54 Ordered Labs from last 24 hours 05/15/20 16:21 Urine Color Yellow Urine Appearance Clear Urine pH 5 Ur Specific Gravit y 1.015 Urine Protein Neg Urine Glucose (UA) Norm Urine Ketones Negative Urine Blood 3+ H Urine Nitrate Negative Urine Bilirubin Neg Urine Urobilinogen Norm Ur Leukocyte Nicky ase Negative Urine RBC 0-4 H Urine WBC 5-10 H Ur Squamous Epith Cells 0-4 H Amorphous Sediment Not Reportable Urine Bacteria Trace Vitals: Last Vital Signs Temp 97.8 F 05/16/20 11:08 Pulse 84 05/16/20 11:08 Resp 16 05/16/20 14:56 BP 104/68 05/16/20 11:08 Pulse Ox 95 05/16/20 11:08 Discharge Plan Discharge Patient Disposition: Home Health Service Condition: Stable Prescriptions: New celecoxib 200 mg Capsule 200 mg PO BID Qty: 30 RF: 0 sennosides-docusate sodium 8.6-50 mg Tablet 1 tab PO DAILY Qty: 30 RF: 0 aspirin 325 mg Tablet,Delayed Release (Dr/Ec) 325 mg PO DAILY Qty: 30 RF: 0 Arnegard 5-325 mg tablet 1 tab PO Q12H PRN (Reason: pain) Qty: 10 RF: 0 Tylenol Arthritis Pain 650 mg tablet extended release 650 mg PO Q8H PRN (Reason: pain) Qty: 30 RF: 0 omeprazole 40 mg capsule,delayed release(DR/EC) 40 mg PO DAILY Qty: 30 RF: 0 Continued Botox 100 unit recon soln 155 unit SUBCUT ONCE Qty: 2 RF: 0 niacin 500 mg tablet 250 mg PO DAILY RF: 0 magnesium 250 mg tablet 250 mg PO DAILY RF: 0 duloxetine 60 mg Capsule,Delayed Release(Dr/Ec) 60 mg PO DAILY RF: 0 Discontinued hydrochlorothiazide 25 mg Tablet 25 mg PO DAILY RF: 0 Discharge Orders: Discharge Order (Routine); Ordered 05/16/20 Ordered By: Margarita Guillory Referrals: [facility] [Outside] Margarita Guillory MD [Physician] - 09/10/20 10:00 am Theresa Diez FNP [Primary Care Provider] - 05/23/20 11:00 am Discharge Diet: Advance as tolerated Discharge Activity: Limit activity as instructed and As per PT/OT instructions Patient Instructions: Acetaminophen (By mouth), Aspirin (By mouth), Laxative, Stimulant (By mouth), Celecoxib (By mouth), Hydrocodone (By mouth), Fractures - Humerus, Arm Fracture in Adults (DC), Syncope (DC) Activity Restrictions/Additional Instructions: Range of motion as instructed per PT/OT. You may use her splint to rest your arm. Keep wound covered until debbie are discontinued. Please call your doctor or present to emergency department if your condition worsens or you develop diarrhea, lightheadedness, fatigue or see blood in your stool or black stool. 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
[2020-05-16 15:22] VITALS: BP 124/73; PULSE 78; RESP 16; TEMP 37; O2SAT 93
--- NOTE | 2020-05-16 15:52 | PC.NURSE ---
discharge instructions provided, verbalized understanding, denies further questions or concerns
[2020-05-16 15:56] VITALS: BP 124/73; PULSE 78; RESP 16; TEMP 37; O2SAT 93
--- NOTE | 2020-05-18 09:35 | PC.RESP ---
SMOKING CESSATION INFORMATION SENT TO PATIENT.
== END 2020-05-16 15:58 | disposition home health service (06) | DRG 494 ==
LOC: ER 01:54 → MEDSURG 02:09
PROVIDERS: Emergency Medicine; Specialist; Admitting Provider Internal Medicine; PCP Nurse Practitioner; Visit Provider Internal Medicine
DX: S42.402A Unspecified fracture of lower end of left humerus, initial encounter for closed fracture (principal); W18.30XA Fall on same level, unspecified, initial encounter; G43.711 Chronic migraine without aura, intractable, with status migrainosus; Z79.899 Other long term (current) drug therapy; I45.10 Unspecified right bundle-branch block; F32.9 Major depressive disorder, single episode, unspecified; G89.29 Other chronic pain; E78.5 Hyperlipidemia, unspecified; K21.9 Gastro-esophageal reflux disease without esophagitis; M81.0 Age-related osteoporosis without current pathological fracture; Z87.898 Personal history of other specified conditions; F17.210 Nicotine dependence, cigarettes, uncomplicated; R55 Syncope and collapse; E87.6 Hypokalemia; E86.0 Dehydration
CPT/HCPCS: 12345; 36415; 51702; 70450; 73070; 73080; 73200; 73630; 76000; 80048; 81001; 82550; 84146; 84443; 85025; 85049; 85378; 85384; 85610; 85730; 93005; 96375; 97161; 97166; 99283; C1713; J0690; J1100; J1170; J2270; J2370; J2405; J2704; J2795; J3010; J3490; J7030

== ENCOUNTER → 2020-05-31 10:01 | Outpatient (BNVA) | payer OTHER, SELFPAY | PROVIDERS: PCP Nurse Practitioner; Visit Provider Specialist | DX: Z48.89 Encounter for other specified surgical aftercare (principal); S42.402A Unspecified fracture of lower end of left humerus, initial encounter for closed fracture; X58.XXXA Exposure to other specified factors, initial encounter | CPT/HCPCS: 73080 ==

== ENCOUNTER 2020-05-31 11:35 | Outpatient (CLI) | payer OTHER, SELFPAY | END 2020-05-31 11:36 | disposition home or self-care (01) | LOC: SPT 11:35 | PROVIDERS: PCP Nurse Practitioner; Visit Provider Specialist | DX: Z46.89 Encounter for fitting and adjustment of other specified devices (principal); Z48.89 Encounter for other specified surgical aftercare | CPT/HCPCS: 97760; L3761 ==

== ENCOUNTER → 2020-06-07 09:40 | Outpatient (BNVA) | payer OTHER, SELFPAY | PROVIDERS: PCP Nurse Practitioner; Visit Provider Specialist | DX: Z48.89 Encounter for other specified surgical aftercare (principal); S42.402A Unspecified fracture of lower end of left humerus, initial encounter for closed fracture; X58.XXXA Exposure to other specified factors, initial encounter | CPT/HCPCS: 73080 ==

== ENCOUNTER → 2020-06-28 10:06 | Outpatient (BNVA) | payer OTHER, SELFPAY | PROVIDERS: PCP Nurse Practitioner; Visit Provider Specialist | DX: S42.492A Other displaced fracture of lower end of left humerus, initial encounter for closed fracture (principal); X58.XXXA Exposure to other specified factors, initial encounter; Z48.89 Encounter for other specified surgical aftercare | CPT/HCPCS: 73080 ==

== ENCOUNTER → 2020-07-25 09:07 | Outpatient (BNVA) | payer OTHER, SELFPAY | PROVIDERS: PCP Nurse Practitioner; Visit Provider Specialist | DX: S42.492A Other displaced fracture of lower end of left humerus, initial encounter for closed fracture (principal); X58.XXXA Exposure to other specified factors, initial encounter; Z48.89 Encounter for other specified surgical aftercare | CPT/HCPCS: 73080 ==

== ENCOUNTER → 2020-09-06 08:12 | Outpatient (BNVA) | payer OTHER, SELFPAY | PROVIDERS: PCP Nurse Practitioner; Visit Provider Specialist | DX: G43.711 Chronic migraine without aura, intractable, with status migrainosus (principal); F17.210 Nicotine dependence, cigarettes, uncomplicated | CPT/HCPCS: 64615; J0585 ==

== ENCOUNTER → 2020-11-29 08:00 | Outpatient (BNVA) | payer OTHER, SELFPAY | PROVIDERS: PCP Nurse Practitioner; Visit Provider Specialist | DX: G43.711 Chronic migraine without aura, intractable, with status migrainosus (principal); M79.7 Fibromyalgia; M46.1 Sacroiliitis, not elsewhere classified; F17.210 Nicotine dependence, cigarettes, uncomplicated | CPT/HCPCS: 20550; 20552; 64615; 99213; J0585; J1030; J3490 ==

== ENCOUNTER → 2021-03-15 11:15 | Outpatient (BNVA) | payer OTHER, SELFPAY | PROVIDERS: PCP Nurse Practitioner; Visit Provider Specialist | DX: G43.709 Chronic migraine without aura, not intractable, without status migrainosus (principal) | CPT/HCPCS: 64615; J0585 ==

== ENCOUNTER → 2021-06-20 10:32 | Outpatient (BNVA) | payer OTHER, SELFPAY | PROVIDERS: PCP Nurse Practitioner; Visit Provider Specialist | DX: G43.709 Chronic migraine without aura, not intractable, without status migrainosus (principal) | CPT/HCPCS: 64615; J0585 ==

== ENCOUNTER 2021-09-04 09:37 | Emergency (ER) | payer OTHER, SELFPAY ==
[2021-09-04 09:59] VITALS: BP 105/72; PULSE 92; RESP 16; TEMP 37.1; O2SAT 95; BMI 30.4
[2021-09-04 10:12] VITALS: PULSE 75
--- NOTE | 2021-09-04 10:12 | ECG_ITS ---
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 Measurements Intervals [place] Rate: 75 P: 62 WI: 132 QRS: 61 QRSD: 94 T: 62 QT: 370 QTc: 416 Interpretive Statements SINUS RHYTHM POSSIBLE RIGHT VENTRICULAR CONDUCTION DELAY [RSR (QR) IN V1/V2] Compared to ECG 05/15/2020 01:04:33 No significant changes Electronically Signed On 09-04-2021 22:00:19 CLINICAL PROJECT ASSISTANT by Haily Bangura M.D. [id number]
--- NOTE | 2021-09-04 10:12 | CT_ITS ---
WS: [id number] CT ABDOMEN PELVIS TECHNIQUE: Contrast-enhanced CT of the abdomen and pelvis with coronal and sagittal reformatted image s. CLINICAL INFORMATION: abd pain COMPARISON: CT 8 18,017 DLP: 1589.[address] scans at [facility] use at least one of these dose optimization techniques: automated e xposure control; mA and/or kV adjustment per patient size (includes targeted exams where dose is matc hed to clinical indication); or iterative reconstruction. FINDINGS: Diffuse fatty infiltration of the liver. Normal portal vein and splenic vein. Lung bases are well aer ated. Adrenal glands are normal. Normal renal parenchymal enhancement. No hydronephrosis. Tiny right renal cyst. Normal pancreas. Normal spleen. Tiny esophageal hiatal hernia. Mild diffuse mucosal enhancement involving the left descending colon and sigmoid colon with slight in duration about the sigmoid colon suspicious for infectious or inflammatory colitis. Mild wall thicken ing. Colon is decompressed. Normal cecum. Normal ileocecal valve. Slightly ectatic upper abdominal aorta measuring 2.2 x 2.4 cm AP by transverse. Tiny fat-containing u mbilical hernia. No free fluid in the abdomen or pelvis. No abdominal or pelvic lymphadenopathy. CT/CT abdomen pelvis w con* [id number] IMPRESSION: 1. Wall thickening with mucosal enhancement involving the descending left and sigmoid colon. Mild induration about the sigmoid colon suspicious for infectiou s or inflammatory colitis. 2. No evidence of drainable abscess or fluid collection. No significant divert iculosis. 3. Mild diffuse fatty infiltration of the liver. 4. No hydronephrosis in either kidney. 5. Slightly ectatic upper abdominal aorta measuring 2.2 x 2.4 cm AP by transve rse. 6. No abdominal or pelvic lymphadenopathy. 7. No free fluid in the abdomen or pelvis. Notified Rafat Valencia DO at 09/04/2021 11:33 AM.
--- NOTE | 2021-09-04 10:27 | W.ED.ABDPA2 ---
HPI - Abdominal Pain General: Chief Complaint: Abdominal Pain Stated Complaint: STATES BLEEDING FROM RECTUM, N/V Time Seen by Provider: 09/04/21 10:09 History of Present Illness: HPI narrative: 60-year-old female presents emergency room with complaints of abdominal discomfort last 3 days. She has had several incontinent stools. She is also had several frankly bloody bowel movement's. She has vomited once after she tried taking some Pepto-Bismol. She denies any dysuria urgency or frequency. She not on any anticoagulants. No fever sweats or chills. Most of her pain is in the lower abdomen and suprapubic area. She denies ever having had episodes like this before. Several years ago she had a colonoscopy to the best of her knowledge it was unremarkable she cannot remember when she was told to follow-up she was not told that having any colon polyps removed. MD elicited complaint: abdominal pain Onset (ago): day(s) (3) Pain Consistency: intermittent Location: LLQ and Suprapubic Severity: mild Quality: cramping Radiation: none Exacerbating factors: nothing Relieving factors: nothing Associated Symptoms: Reports anorexia, bloating, change in bowel habits, change in stool character, GI cramping, diarrhea, hematochezia, fecal incontinence, nausea, poor appetite and vomiting; Denies belching, chills, coffee ground emesis, constipation, dyspepsia, dysuria, excessive flatus, fever(s), heartburn, hematuria, hematemesis, loose stools, melena and syncope Review of Systems Const: Denies: fever(s) or chills Card: Denies: syncope Resp: Denies: dyspnea, productive cough or non-productive cough GI: Reports: nausea, vomiting, diarrhea, bloating, GI cramping, fecal incontinence, change in bowel habits, change in stool character and hematochezia; Denies: hematemesis, coffee ground emesis, heartburn, constipation, belching, excessive flatus or melena : Denies: dysuria or hematuria PFS ED PFSH: Medical History (Updated 09/04/21 @ 13:03 by Rafat Valencia DO) Cognitive complaints 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, migraine, requiring Botox injections Dyslipidemia Fracture of distal end of humerus GERD (gastroesophageal reflux disease) Headache, chronic migraine without aura, intractable, with status Lyme disease Osteoporosis Seizure disorder Smoking Supracondylar fracture of left humerus with intercondylar extension Surgical History H/O: hysterectomy Family History Other Cancer Stroke Social History Alcohol intake: never Household members: spouse Housing: House History of recent travel: No Physical Exam Const: COMMON NORMALS: no acute distress GENERAL APPEARANCE: cooperative and comfortable ORIENTATION/CONSCIOUSNESS: Yes awake, Yes oriented to person, Yes oriented to place and Yes oriented to time HENMT: COMMON NORMALS: normocephalic, atraumatic and hearing grossly normal bilaterally HEAD & SCALP: normocephalic and atraumatic Neck/C-Spine: COMMON NORMALS: no JVD Resp: COMMON NORMALS: normal respiratory effort, No retractions, No use of accessory muscles and clear to auscultation bilaterally AUSCULTATION: clear to auscultation bilaterally Cardio: COMMON NORMALS: no JVD, regular rate, regular rhythm and No murmurs present (Cardio) RATE: regular rate RHYTHM: regular rhythm GI: INSPECTION: No abdominal distension AUSCULTATION: Yes Hypoactive bowel sounds present PALPATION: Yes Tenderness to palpation present (GI) (Suprapubic and left lower quadrant) Extremity: COMMON NORMALS: normal to inspection, capillary refill normal, no clubbing, cyanosis or edema, no calf tenderness and no pedal edema Neuro: SENSORIUM/ORIENTATION: Yes oriented to person, Yes oriented to place and Yes oriented to time Skin: COMMON NORMALS: no rashes or lesions noted GENERAL SKIN EXAM: no rashes or lesions noted Course Vital Signs: Vital signs: Vital Signs Temperature 98.7 F 09/04/21 09:59 Pulse Rate 95 09/04/21 13:12 Respiratory Rate 15 09/04/21 13:12 Blood Pressure 136/83 09/04/21 13:12 Pulse Oximetry 93 09/04/21 13:12 MDM - Abdominal Pain MDM Narrative: Medical decision making narrative: Started on Cipro and Flagyl Zofran clear liquid diet recheck in 3 to 4 days return sooner if has further problems. Lab Data: Labs: Lab Results 09/04/21 09/04/21 09/04/21 10:35 10:35 10:35 WBC 12.0 10^3/uL H 10 ^3/uL (4.0-10.0) RBC 5.19 10^6/uL 10^6 /uL (4.1-5.3) Hgb 15.0 g/dL g/dL (11.5-15.3) Hct 45.3 % % (37.0-47.0) MCV 87.3 fl fl (81-99) MCH 28.9 pg pg (28.0-34.0) MCHC 33.1 g/dL g/dL (30.0-36.0) RDW 14.8 % % (12.1-15.1) Plt Count 279 10^3/cmm 10^3 /cmm (130-400) MPV 9.5 fL fL (7.4-10.4) Neut % (Auto) 84.4 % % Lymph % (Auto) 11.1 % % [place] % (Auto) 3.9 % % Eos % (Auto) 0.2 % % Baso % (Auto) 0.2 % % Neut # (Auto) 10.15 10^3/uL H 1 0^3/uL (1.8-7.7) Lymph # (Auto) 1.3 10^3/uL 10^3/ uL (0.8-4.8) [place] # (Auto) 0.5 10^3/uL 10^3/ uL (0.2-0.9) Eos # (Auto) 0.0 10^3/uL 10^3/ uL (0.0-0.8) Baso # (Auto) 0.0 10^3/uL 10^3/ uL (0.0-0.1) Nucleated RBC % (a uto) 0 % % Nucleated RBCs # 0.0 /100WBC /100W BC PT 13.50 SECONDS SEC ONDS (12.1-14.9) INR 1.00 (0.8-1.2) APTT 26.8 SECONDS SECO NDS (23.9-36.7) Sodium 142 mmol/L mmol/L (136-145) Potassium 4.4 mmol/L mmol/L (3.5-5.1) Chloride 104 mmol/L mmol/L (98-107) Carbon Dioxide 24 mmol/L mmol/L (22-29) Anion Gap 18.4 (5-19) BUN 12 mg/dL mg/dL (6-20) Creatinine 0.6 mg/dL mg/dL (0.5-0.9) GFR Calculation 102.3 mL/min mL/m in (90-130) Glucose 103 mg/dL mg/dL (65-115) Calculated Osmolal ity 294 mOsm/kg mOsm/ kg (285-295) Calcium 8.7 mg/dL mg/dL (8.5-10.5) Total Bilirubin 0.2 mg/dL mg/dL (0.15-1.2) AST 16 U/L U/L (0-32) ALT 17 U/L U/L (0-33) Alkaline Phosphata se 95 IU/L IU/L (35-105) Creatine Kinase 65 U/L U/L (26-192) Total Protein 7.2 g/dL g/dL (6.6-8.7) Albumin 4.1 g/dL g/dL (3.5-5.2) Globulin 3.1 g/dL g/dL (1.3-4.6) Urine Color Urine Appearance Urine pH Ur Specific Gravit y Urine Protein Urine Glucose (UA) Urine Ketones Urine Blood Urine Nitrate Urine Bilirubin Urine Urobilinogen Ur Leukocyte Nicky ase Urine RBC Urine WBC Ur Squamous Epith Cells Amorphous Sediment Urine Bacteria Urine Mucus 09/04/21 10:45 WBC RBC Hgb Hct MCV MCH MCHC RDW Plt Count MPV Neut % (Auto) Lymph % (Auto) [place] % (Auto) Eos % (Auto) Baso % (Auto) Neut # (Auto) Lymph # (Auto) [place] # (Auto) Eos # (Auto) Baso # (Auto) Nucleated RBC % (a uto) Nucleated RBCs # PT INR APTT Sodium Potassium Chloride Carbon Dioxide Anion Gap BUN Creatinine GFR Calculation Glucose Calculated Osmolal ity Calcium Total Bilirubin AST ALT Alkaline Phosphata se Creatine Kinase Total Protein Albumin Globulin Urine Color Yellow (Yellow) Urine Appearance Hazy A (CLEAR) Urine pH 5 (5-7) Ur Specific Gravit y 1.025 (1.005-1.030) Urine Protein Neg (Negative) Urine Glucose (UA) Norm (Normal) Urine Ketones Negative (Negative) Urine Blood 3+ H (Negative) Urine Nitrate Negative (Negative) Urine Bilirubin 1+ H (Negative) Urine Urobilinogen 1 mg/dL H mg/dL (Negative) Ur Leukocyte Nicky ase Trace H (Negative) Urine RBC 5-10 /hpf H /hpf (0-2) Urine WBC 5-10 /hpf H /hpf (0-5) Ur Squamous Epith Cells 5-10 /hpf H /hpf (0-5) Amorphous Sediment Not Reportable Urine Bacteria Trace /hpf /hpf (NONE) Urine Mucus 2+ /hpf /hpf Discharge Plan Discharge Patient Disposition: Home Clinical Impression: Colitis Condition: Stable Prescriptions: New Cipro 500 mg tablet 500 mg PO BID 10 Days Qty: 20 RF: 0 Flagyl 500 mg tablet 500 mg PO BID 10 Days Qty: 20 RF: 0 Zofran 4 mg tablet 4 mg PO Q6H PRN (Reason: nausea and vomiting) Qty: 20 RF: 0 No Action sertraline 25 mg tablet 25 mg PO DAILY RF: 0 niacin 500 mg tablet 250 mg PO DAILY RF: 0 magnesium 250 mg tablet 250 mg PO DAILY RF: 0 (DME) HINGED ELBOW BRACE See Rx Instructions .Route .MEDSUPPLY Qty: 1 RF: 0 duloxetine 60 mg Capsule,Delayed Release(Dr/Ec) 60 mg PO DAILY RF: 0 celecoxib 200 mg Capsule 200 mg PO BID Qty: 30 RF: 0 sennosides-docusate sodium 8.6-50 mg Tablet 1 tab PO DAILY Qty: 30 RF: 0 aspirin 325 mg Tablet,Delayed Release (Dr/Ec) 325 mg PO DAILY Qty: 30 RF: 0 Tylenol Arthritis Pain 650 mg tablet extended release 650 mg PO Q8H PRN (Reason: pain) Qty: 30 RF: 0 omeprazole 40 mg capsule,delayed release(DR/EC) 40 mg PO DAILY Qty: 30 RF: 0 Discharge Orders: Discharge ED (Routine); Ordered 09/04/21 Ordered By: Rafat Valencia Referrals: Theresa Diez FNP [Primary Care Provider] - Discharge Diet: Clear Liquid Discharge Activity: Increase activity as tolerated Patient Instructions: Opioid Safety Activity Restrictions/Additional Instructions: Clear liquid diet for 48 hours then advance as tolerated. Follow-up with your primary care doctor within the week. Return to emergency room for any worsening symptoms. Coding Level of Care Code ED Train Clerk for Chg Fwd Exam Comprehensive
[2021-09-04 10:54] LABS: Basophils % 0.2 %; Eosinophils % 0.2 %; Hematocrit 45.3 % (37.0-47.0); Lymphocytes # 1.3 10^3/uL (0.8-4.8); Lymphocytes % 11.1 %; Mean Corpuscular HGB Conc 33.1 g/dL (30.0-36.0); Mean Corpuscular Hemoglobin 28.9 pg (28.0-34.0); Mean Corpuscular Volume 87.3 fl (81-99); Mean Platelet Volume 9.5 fL (7.4-10.4); Monocytes # 0.5 10^3/uL (0.2-0.9); Monocytes % 3.9 %; Neutrophils # 10.15 10^3/uL (1.8-7.7); Neutrophils % 84.4 %; Nucleated Red Blood Cells % 0 %; Platelet Count 279 10^3/cmm (130-400); Red Blood Count 5.19 10^6/uL (4.1-5.3); Red Cell Distribution Width 14.8 % (12.1-15.1)
[2021-09-04] MEDS: iohexol 300 mg/mL 100 mL Btl IV (11:04)
[2021-09-04 11:06] VITALS: BP 132/70; PULSE 88; RESP 15; O2SAT 98
[2021-09-04 11:10] LABS: Partial Thromboplastin Time 26.8 SECONDS (23.9-36.7)
[2021-09-04 11:12] LABS: Alanine Aminotransferase 17 U/L (0-33); Albumin Level 4.1 g/dL (3.5-5.2); Alkaline Phosphatase 95 IU/L (35-105); Anion Gap 18.4 (5-19); Aspartate Amino Transferase 16 U/L (0-32); Blood Urea Nitrogen 12 mg/dL (6-20); Calcium 8.7 mg/dL (8.5-10.5); Carbon Dioxide 24 mmol/L (22-29); Chloride 104 mmol/L (98-107); Creatine Phosphokinase 65 U/L (26-192); Creatinine Clr Calc Pharmacy 118.9371; Globulin 3.1 g/dL (1.3-4.6); Glomerular Filtration Rate 102.3 mL/min (90-130); Glucose 103 mg/dL (65-115); Osmolality Calculated 294 mOsm/kg (285-295); Potassium 4.4 mmol/L (3.5-5.1); Sodium 142 mmol/L (136-145); Total Bilirubin 0.2 mg/dL (0.15-1.2); Total Protein 7.2 g/dL (6.6-8.7)
[2021-09-04 11:17] LABS: Blood Urine 3+ (Negative); Glucose Urine UA Norm (Normal); Ketones Urine Negative (Negative); Nitrate Urine Negative (Negative); Protein Urine Neg (Negative); Specific Gravity, Urine 1.025 (1.005-1.030); Urine Appearance Hazy (CLEAR); Urine Color Yellow (Yellow); pH Urine 5 (5-7)
[2021-09-04 11:18] LABS: Add Urine Microscopic? YES; Bilirubin Urine 1+ (Negative); Leukocyte Esterase Urine Trace (Negative); Urobilinogen Urine 1 mg/dL (Negative)
[2021-09-04 11:21] LABS: Add Urine Culture? No; Bacteria Urine TRACE /hpf; Mucus Urine 2+ /hpf; Other Sediment, Urine T
[2021-09-04 12:06] VITALS: BP 136/83; PULSE 95; RESP 15; O2SAT 93
[2021-09-04 13:12] VITALS: BP 136/83; PULSE 95; RESP 15; O2SAT 93
== END 2021-09-04 13:12 | disposition home or self-care (01) ==
PROVIDERS: Emergency Provider Family Medicine; PCP Nurse Practitioner
DX: K52.9 Noninfective gastroenteritis and colitis, unspecified (principal); Z79.82 Long term (current) use of aspirin
CPT/HCPCS: 74177; 80053; 81001; 82550; 85025; 85610; 85730; 93005; 99284; Q9967

== ENCOUNTER 2021-11-27 08:06 | Outpatient (CLI) | payer OTHER, SELFPAY ==
--- NOTE | 2021-11-27 08:14 | US_ITS ---
WS: [id number] RIGHT UPPER QUADRANT ULTRASOUND HISTORY: RUQ PAIN COMPARISON: 09/04/2021 Liver: 14.8 cm in length. Normal size liver. No bile duct dilatation or mass. Portal Vein: Normal hepatopetal flow with monophasic waveform. Gallbladder: Normally distended gallbladder with no stones or wall thickening. CBD: 0.3 cm Pancreas: Normal size and echogenicity. Right kidney: 10.1 cm in length. Normal size and echogenicity. No hydronephrosis or mass. Aorta and IVC: Unremarkable abdominal aorta and IVC. No ascites. US/US abdomen limited [id number] IMPRESSION: Normal RIGHT upper quadrant ultrasound.
== END 2021-11-27 08:07 | disposition home or self-care (01) ==
LOC: RAD 08:08
PROVIDERS: PCP Nurse Practitioner; Visit Provider Nurse Practitioner
DX: R10.11 Right upper quadrant pain (principal)
CPT/HCPCS: 76705

== ENCOUNTER → 2022-03-05 09:55 | Outpatient (BNVA) | payer OTHER, SELFPAY | PROVIDERS: PCP Nurse Practitioner; Visit Provider Internal Medicine Cardiovascular Disease | DX: R07.9 Chest pain, unspecified (principal); R55 Syncope and collapse; R00.2 Palpitations; I49.3 Ventricular premature depolarization; I49.1 Atrial premature depolarization; I47.2 Ventricular tachycardia | CPT/HCPCS: 93005; 93229; 99204 ==

== ENCOUNTER 2022-03-10 12:47 | Outpatient (CLI) | payer OTHER, SELFPAY ==
--- NOTE | 2022-03-10 12:54 | USCV_ITS ---
Heydi Pereira Age: 61 Gender: F : 1960 Exam Date: 03/10/2022 13:10 Ordering Phys: Theresa Diez Technologist: Tracee Dove Exam Location: [facility] [place] Indication: Pain lt side of neck and fatique Risk Factors: Previous Vascular Surgery: Right Brachial BP: / Left Brachial BP: / Right Left Velocity (cm/s) Spectral Plaque Velocity (cm/s) Spectral Plaque Syst/Diast Broadening Syst/Diast Broadening 79.40/ 34.20 Prox CCA / 64.90/ 35.90 Mid CCA 47.40 / 15.80 75.20/ 35.90 Hetro Distal CCA 53.00 / 18.60 Hetro 76.20/ 31.60 Hetro Prox ICA 86.40 / 32.50 Hetro 85.40/ 47.30 Mid ICA 88.30 / 46.50 89.20/ 39.00 Distal ICA 66.00 / 32.50 131.30 Hetro ECA 59.50 Hetro 1.37 ICA/CCA 1.86 Antegrade Vertebral Antegrade 60.40/ 21.40 cm/s 40.90/ 17.70 cm/s Tri Subclavian Tri 48.30 78.10 FINDINGS Moderate heterogeneous plaques of the left bifurcation and proximal internal carotid artery. Mild to moderate heterogeneous plaques of the right bifurcation and proximal internal carotid artery. Intimal thickening in the common carotid arteries bilaterally. Antegrade flow in the vertebral arteries bilaterally. Normal Doppler velocities in the external carotid, subclavian and the vertebral arteries bilaterally. CONCLUSIONS Moderate heterogeneous plaques of the left bifurcation and proximal internal carotid artery, suggesting less than 50% stenosis Mild to moderate heterogeneous plaques of the right bifurcation and proximal internal carotid artery, suggesting less than 50% stenosis. No similar previous studies are available for comparison Dr Haily Bangura MD [facility] (Electronically Signed) Final Date: 13 March 2022 07:54 S
== END 2022-03-10 12:48 | disposition home or self-care (01) ==
LOC: RAD 12:48
PROVIDERS: PCP Nurse Practitioner; Visit Provider Nurse Practitioner
DX: I65.23 Occlusion and stenosis of bilateral carotid arteries (principal); R53.83 Other fatigue; M54.2 Cervicalgia
CPT/HCPCS: 93880

== ENCOUNTER 2023-01-22 14:29 | Emergency (ER) | payer OTHER, SELFPAY ==
[2023-01-22 14:35] VITALS: BP 141/93; PULSE 98; RESP 20; TEMP 36.7; O2SAT 96; BMI 26.9
--- NOTE | 2023-01-22 16:00 | ED_ITS ---
HPI - Headache General: Chief Complaint: Headache Stated Complaint: [facility] Time Seen by Provider: 01/22/23 15:45 Source: patient and family History of Present Illness: 62-year-old female presents emergency room complaining of headaches. States she has had headaches for prolonged period time she used to get Botox from Dr. Jesús horton when she got a xalethasma above her right eyelid which she attributed to the Botox. She is complaining of pain today bilaterally in the frontal region radiating to the facial bones. She has been nauseous and had some photophobia. She is not really taking anything for it. She has noted she has been dizzy as well no recent trauma or falls nothing seems to relieve or aggravate. 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 MD elicited complaint: migraine Onset (ago): hour(s) Location: frontal and facial Severity: moderate Exacerbating factors: none Relieving factors: nothing Associated symptoms: Deny chest pain, confusion, cough, diaphoresis, eye pain, eye redness, fever(s), lightheadedness, loss of vision, malaise, nausea, neck stiffness, numbness, paresthesias, photophobia, pre-syncope, rash, seizures, short of breath, sound sensitivity, syncope, vomiting or weakness Review of Systems Const: Denies: fever(s), chills, fatigue, malaise or diaphoresis Card: Denies: chest pain, lightheadedness, syncope or pre-syncope Resp: Denies: dyspnea, productive cough or non-productive cough GI: Denies: nausea or vomiting : Denies: flank pain, difficulty voiding, dysuria, urinary frequency or urinary urgency Skin/Breast: Denies: rash or pruritus Neuro: Denies: confusion PFSH ED PFSH: Medical History Cognitive complaints 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, migraine, requiring Botox injections Dyslipidemia Fracture of distal end of humerus GERD (gastroesophageal reflux disease) Headache, chronic migraine without aura, intractable, with status IBS (irritable bowel syndrome) Lyme disease Osteoporosis Seizure disorder Smoking Supracondylar fracture of left humerus with intercondylar extension Surgical History H/O: hysterectomy History of surgery on arm S/P appendectomy Family History Mother Stroke Hypertension Hyperlipidemia Cancer Breast CA Family/Other Stroke mother side Diabetes Father CHF (congestive heart failure) Other CAD (coronary artery disease) Social History Smoking and tobacco status: current every day smoker (12 cigs/day) cigarettes [ Other cigarette details: Half a pack smoker] Alcohol intake: never Substance/Drug Use: never Household members: spouse Housing: House Physical Exam Const: GENERAL APPEARANCE: cooperative and comfortable ORIENTATION/CONSCIOUSNESS: Yes awake HENMT: COMMON NORMALS: normocephalic, atraumatic and hearing grossly normal bilaterally HEAD & SCALP: normocephalic and atraumatic Eye: DIRECT OPHTHALMOSCOPY: No photophobia Resp: COMMON NORMALS: normal respiratory effort, No retractions, No use of accessory muscles and clear to auscultation bilaterally AUSCULTATION: clear to auscultation bilaterally Cardio: COMMON NORMALS: regular rate, regular rhythm and No murmurs present (Cardio) RATE: regular rate RHYTHM: regular rhythm GI: COMMON NORMALS: Soft to palpation and No hepatosplenomegaly present AUSCULTATION: Yes normoactive bowel sounds PALPATION: Yes Soft to palpation, No Tenderness to palpation present (GI), No Guarding due to palpation present (GI) and Yes No hepatosplenomegaly present Extremity: COMMON NORMALS: normal to inspection, capillary refill normal, no clubbing, cyanosis or edema, no calf tenderness and no pedal edema Skin: COMMON NORMALS: no rashes or lesions noted GENERAL SKIN EXAM: no rashes or lesions noted Course Vital Signs: Vital signs: Vital Signs Temperature 98.1 F 01/22/23 14:35 Pulse Rate 76 01/22/23 18:25 Respiratory Rate 20 H 01/22/23 14:35 Blood Pressure 125/94 01/22/23 18:25 Pulse Oximetry 97 01/22/23 18:25 Oxygen Delivery Me thod Room Air 01/22/23 14:35 MDM - Headache Medical Decision Making Headache improved with medications. Dizziness also improved. CT CT reviewed independently shows no evidence of bleed or stroke neurologically she is intact on exam there is no focal neurologic deficits are noted. There is no history of head trauma. There are no intracranial masses. Blood pressure stable recommend that she follow-up with Dr. Espinosa and resume care with her for her recurrent migraines. Medical Records I reviewed the patient's medical records. Lab Data I reviewed the patient's lab results. 01/22/23 16:13 01/22/23 16:[address] 01/22/23 16:15 IMPRESSION: No acute intracranial abnormality. Laboratory Results WBC 7.5 10^3/uL (4.0-10.0) 01/22/23 16:13 RBC 4.84 10^6/uL (4.1-5.3) 01/22/23 16:13 Hgb 14.4 g/dL (11.5-15.3) 01/22/23 16:13 Hct 43.5 % (37.0-47.0) 01/22/23 16:13 MCV 89.9 fl (81-99) 01/22/23 16:13 MCH 29.8 pg (28.0-34.0) 01/22/23 16:13 MCHC 33.1 g/dL (30.0-36.0) 01/22/23 16:13 RDW 14.4 % (12.1-15.1) 01/22/23 16:13 Plt Count 290 10^3/cmm (130-400) 01/22/23 16:13 MPV 10.1 fL (7.4-10.4) 01/22/23 16:13 Neut % (Auto) 49.9 % 01/22/23 16:13 Lymph % (Auto) 41.6 % 01/22/23 16:13 [place] % (Auto) 5.6 % 01/22/23 16:13 Eos % (Auto) 1.9 % 01/22/23 16:13 Baso % (Auto) 0.9 % 01/22/23 16:13 Neut # (Auto) 3.74 10^3/uL (1.8-7.7) 01/22/23 16:13 Lymph # (Auto) 3.1 10^3/uL (0.8-4.8) 01/22/23 16:13 [place] # (Auto) 0.4 10^3/uL (0.2-0.9) 01/22/23 16:13 Eos # (Auto) 0.1 10^3/uL (0.0-0.8) 01/22/23 16:13 Baso # (Auto) 0.1 10^3/uL (0.0-0.1) 01/22/23 16:13 Nucleated RBC % (auto) 0 % 01/22/23 16:13 Nucleated RBCs # 0.0 /100WBC 01/22/23 16:13 Sodium 139 mmol/L (136-145) 01/22/23 16:13 Potassium 3.9 mmol/L (3.5-5.1) 01/22/23 16:13 Chloride 102 mmol/L (98-107) 01/22/23 16:13 Carbon Dioxide 27 mmol/L (22-29) 01/22/23 16:13 Anion Gap 13.9 (5-19) 01/22/23 16:13 BUN 14 mg/dL (8-23) 01/22/23 16:13 Creatinine 0.7 mg/dL (0.5-0.9) 01/22/23 16:13 GFR Calculation 85.1 mL/min (90-130) L 01/22/23 16:13 Glucose 91 mg/dL (65-115) 01/22/23 16:13 Calculated Osmolality 288 mOsm/kg (285-295) 01/22/23 16:13 Calcium 9.0 mg/dL (8.5-10.5) 01/22/23 16:13 Total Bilirubin 0.2 mg/dL (0.15-1.2) 01/22/23 16:13 AST 20 U/L (0-32) 01/22/23 16:13 ALT 17 U/L (0-33) 01/22/23 16:13 Alkaline Phosphatase 105 U/L (35-105) 01/22/23 16:13 Total Protein 7.3 g/dL (6.6-8.7) 01/22/23 16:13 Albumin 4.2 g/dL (3.5-5.2) 01/22/23 16:13 Globulin 3.1 g/dL (1.3-4.6) 01/22/23 16:13 Discharge Plan Discharge Patient Disposition: Home Clinical Impression: Migraine Condition: Stable Prescriptions: No Action sertraline 25 mg tablet 25 mg PO DAILY niacin 500 mg tablet 250 mg PO DAILY [id number]-zonznpalqtxd-bsglgcin 325-95-16 mg tablet PO PRN sennosides-docusate sodium 8.6-50 mg tablet 1 tab PO DAILY PRN Discharge Orders: Discharge ED (Routine); Ordered 01/22/23 Ordered By: Rafat Valencia Referrals: Theresa Diez FNP [Primary Care Provider] - Discharge Diet: Usual diet Discharge Activity: Increase activity as tolerated Patient Instructions: Opioid Safety, Pain Management Activity Restrictions/Additional Instructions: You are seen today for headache and improved with medications given. Recommend you follow-up with Dr. Espinosa. Case management will help make arrangements for follow-up appointment. Return to the ER if you have further problems. Coding Level of Care Code ED Airline Reservation Agent for [place]
[2023-01-22 16:09] VITALS: BP 127/85; PULSE 84; O2SAT 95
--- NOTE | 2023-01-22 16:15 | CTR_ITS ---
PROCEDURE INFORMATION: Exam: CT Head Without Contrast Exam date and time: 01/22/2023 4:33 PM Age: 62 years old Clinical indication: Pain; Headache; Migraine; Aura effect not specified; Additional info: Headache, migraine TECHNIQUE: Imaging protocol: Computed tomography of the head without contrast. Radiation optimization: All CT scans at this facility use at least one of these dose optimization techniques: automated exposure control; mA and/or kV adjustment per patient size (includes targeted exams where dose is matched to clinical indication); or iterative reconstruction. REPORTING DATA: Count of CT and Cardiac NM exams in prior 12 months: This patient has received 0 known CTs and 0 known cardiac nuclear medicine studies in the 12 months prior to the current study. COMPARISON: CT head wo con* [id number] 05/15/2020 1:25 AM RADIATION DOSE METRICS: Total DLP (mGy-cm): 1126 FINDINGS: Brain: Mild cortical volume loss. Mild hypodensities in supratentorial periventricular and subcortical white matter, consistent with microangiopathy. No intracranial hemorrhage. Cerebral ventricles: No ventriculomegaly. Paranasal sinuses: Stable small air-fluid level or mucosal thickening in the right sphenoid sinus. The other sinuses are clear. Mastoid air cells: Visualized mastoid air cells are well aerated. Bones/joints: Unremarkable. No acute fracture. Soft tissues: Unremarkable. Vasculature: No hyperdense artery. CT/CT head wo con* [id number] IMPRESSION: No acute intracranial abnormality.
[2023-01-22] MEDS: acetaminophen 1,000 MG/100 ML PIGGYBACK 400 MG IV (16:52)
[2023-01-22 16:56] VITALS: BP 133/87; PULSE 91; O2SAT 97
[2023-01-22] MEDS: valproic acid inj 500 MG in sodium chloride 0.9% 50 ML 55 MG IV (17:17)
[2023-01-22 17:29] LABS: Basophils # 0.1 10^3/uL (0.0-0.1); Basophils % 0.9 %; Eosinophils # 0.1 10^3/uL (0.0-0.8); Eosinophils % 1.9 %; Hematocrit 43.5 % (37.0-47.0); Hemoglobin 14.4 g/dL (11.5-15.3); Lymphocytes # 3.1 10^3/uL (0.8-4.8); Lymphocytes % 41.6 %; Mean Corpuscular HGB Conc 33.1 g/dL (30.0-36.0); Mean Corpuscular Hemoglobin 29.8 pg (28.0-34.0); Mean Corpuscular Volume 89.9 fl (81-99); Mean Platelet Volume 10.1 fL (7.4-10.4); Monocytes # 0.4 10^3/uL (0.2-0.9); Monocytes % 5.6 %; Neutrophils # 3.74 10^3/uL (1.8-7.7); Neutrophils % 49.9 %; Nucleated Red Blood Cells % 0 %; Platelet Count 290 10^3/cmm (130-400); Red Blood Count 4.84 10^6/uL (4.1-5.3); Red Cell Distribution Width 14.4 % (12.1-15.1); White Blood Count 7.5 10^3/uL (4.0-10.0)
[2023-01-22 17:39] LABS: Alanine Aminotransferase 17 U/L (0-33); Albumin Level 4.2 g/dL (3.5-5.2); Alkaline Phosphatase 105 U/L (35-105); Anion Gap 13.9 (5-19); Aspartate Amino Transferase 20 U/L (0-32); Blood Urea Nitrogen 14 mg/dL (8-23); Carbon Dioxide 27 mmol/L (22-29); Chloride 102 mmol/L (98-107); Globulin 3.1 g/dL (1.3-4.6); Glomerular Filtration Rate 85.1 mL/min (90-130); Glucose 91 mg/dL (65-115); Osmolality Calculated 288 mOsm/kg (285-295); Potassium 3.9 mmol/L (3.5-5.1); Sodium 139 mmol/L (136-145); Total Bilirubin 0.2 mg/dL (0.15-1.2); Total Protein 7.3 g/dL (6.6-8.7)
[2023-01-22 17:47] VITALS: BP 145/84; O2SAT 95
[2023-01-22 18:25] VITALS: BP 125/94; PULSE 76; O2SAT 97
--- NOTE | 2023-01-23 10:00 | DCPLANNER ---
Addendum entered by Janet Izquierdo 04/16/23 10:12: Patient did attend appointment with neurology Addendum entered by Janet Izquierdo 02/04/23 15:27: Patient has a follow up appointment scheduled for Thursday, April 08, 2023 at 12:[address] Espinosa at neurology. Original Note: area sales manager had message to schedule a follow up appointment for patient with neurology. area sales manager sent patients information to the front office staff at neurology. Patients information will be printed and reviewed. Clinic will call patient with appointment information.
== END 2023-01-22 18:26 | disposition home or self-care (01) ==
PROVIDERS: Emergency Provider Family Medicine; PCP Nurse Practitioner
DX: G43.909 Migraine, unspecified, not intractable, without status migrainosus (principal); F17.210 Nicotine dependence, cigarettes, uncomplicated; E78.5 Hyperlipidemia, unspecified
CPT/HCPCS: 70450; 80053; 85025; 96365; 96367; 99285; J0131; J3490

== ENCOUNTER → 2023-04-08 12:12 | Outpatient (BNVA) | payer OTHER, SELFPAY | PROVIDERS: PCP Nurse Practitioner; Visit Provider Specialist | DX: G43.711 Chronic migraine without aura, intractable, with status migrainosus (principal); F32.A Depression, unspecified | CPT/HCPCS: 99215 ==

== ENCOUNTER 2023-05-06 14:59 | Outpatient (CLI) | payer OTHER, SELFPAY ==
--- NOTE | 2023-05-06 15:15 | MR_ITS ---
WS: [id number] MRI HEAD WITH CONTRAST TECHNIQUE: Sagittal T1, T2 axial, T2 axial FLAIR, axial susceptibility weighted imaging, axial diffus ion weighted images, and coronal T2 images were obtained. Pre and post-T1 axial and post T1 coronal i mages. ADC and FSPGR images. CLINICAL INFORMATION: G43.711 - Chronic migraine without aura, intractable, wit... COMPARISON: CT 01/22/2023 and MRI 2014 FINDINGS: No evidence of restricted diffusion to suggest acute ischemia. Ventricular system and basal cisterns are patent. Mild periventricular supratentorial white matter changes slightly progressed compared to 2015 likely due to small vessel changes in a patient this age. Mild parenchymal volume loss. Normal p osterior fossa. Normal vascular flow voids at the skull base. No extra-axial fluid collections. No ev idence of mass or mass effect. Mucosal thickening with a small amount of fluid in the sphenoid sinuse s. Mastoid air cells are well aerated. Normal vascular flow voids at the skull base. No hemosiderin on the susceptibility weighted images. Normal optic chiasm and pituitary infundibulum. Temporal lobes and hippocampal formations are normal in appearance. No abnormal gadolinium enhanceme nt. Normal dural venous sinuses. IMPRESSION: * No evidence of restricted diffusion to suggest acute ischemia. * Mild white matter changes slightly progressed compared to 2015. Mild parenchymal volume loss. * No hemosiderin on susceptibility-weighted images. * No abnormal gadolinium enhancement. * Mild sphenoid sinusitis.
[2023-05-06] MEDS: gadobenate dimeglumine 20 mL vial IV (15:45)
== END 2023-05-06 15:00 | disposition home or self-care (01) ==
PROVIDERS: PCP Nurse Practitioner; Visit Provider Specialist
DX: G43.711 Chronic migraine without aura, intractable, with status migrainosus (principal); G40.909 Epilepsy, unspecified, not intractable, without status epilepticus; J32.3 Chronic sphenoidal sinusitis
CPT/HCPCS: 70553; A9577

== ENCOUNTER 2023-12-09 11:51 | Outpatient (CLI) | payer OTHER, SELFPAY ==
--- NOTE | 2023-12-09 11:58 | MM_ITS ---
WS: [id number] Bilateral screening 3D tomosynthesis digital mammogram, 12/09/2023 Clinical Data: SCREENING Comparison: 11/13/2014, 11/02/2014, 05/03/2010. Findings: The breast parenchymal pattern shows fibroglandular tissue. No spiculated masses or clustered calcifi cations are seen. There are no secondary signs of carcinoma. Impression: 1. Negative bilateral mammogram unchanged. 2. Recommend annual screening mammograms. MM/[place] [id number] BIRADS: 1-Negative FOLLOW UP: 1 Year Follow-up The CAD invoice checker was used.
== END 2023-12-09 11:52 | disposition home or self-care (01) ==
LOC: RAD 11:52
PROVIDERS: PCP Nurse Practitioner; Visit Provider Nurse Practitioner
DX: Z12.31 Encounter for screening mammogram for malignant neoplasm of breast (principal)
CPT/HCPCS: 77063; 77067

== ENCOUNTER → 2023-12-16 14:31 | Outpatient (BNVA) | payer OTHER, SELFPAY | PROVIDERS: PCP Nurse Practitioner; Referring Provider Nurse Practitioner; Visit Provider Specialist | DX: G43.711 Chronic migraine without aura, intractable, with status migrainosus (principal); G40.909 Epilepsy, unspecified, not intractable, without status epilepticus | CPT/HCPCS: 99215 ==

== ENCOUNTER → 2024-02-11 13:49 | Outpatient (BNVA) | payer OTHER, SELFPAY | PROVIDERS: PCP Nurse Practitioner; Visit Provider Specialist | DX: G40.909 Epilepsy, unspecified, not intractable, without status epilepticus (principal); G43.711 Chronic migraine without aura, intractable, with status migrainosus | CPT/HCPCS: 95816 ==

== ENCOUNTER → 2024-03-16 12:31 | Outpatient (BNVA) | payer OTHER, SELFPAY | PROVIDERS: PCP Nurse Practitioner; Visit Provider Specialist | DX: G40.909 Epilepsy, unspecified, not intractable, without status epilepticus (principal); G43.711 Chronic migraine without aura, intractable, with status migrainosus | CPT/HCPCS: 99213 ==

== ENCOUNTER → 2024-04-14 14:20 | Outpatient (BNVA) | payer OTHER, SELFPAY | PROVIDERS: PCP Nurse Practitioner; Visit Provider Specialist | DX: G43.711 Chronic migraine without aura, intractable, with status migrainosus (principal); G40.909 Epilepsy, unspecified, not intractable, without status epilepticus | CPT/HCPCS: 64615; J0585 ==

== ENCOUNTER → 2024-08-12 13:01 | Outpatient (BNVA) | payer OTHER, SELFPAY | PROVIDERS: PCP Nurse Practitioner; Visit Provider Specialist | DX: G43.711 Chronic migraine without aura, intractable, with status migrainosus (principal); G40.909 Epilepsy, unspecified, not intractable, without status epilepticus | CPT/HCPCS: 64615; J0585 ==

== ENCOUNTER → 2024-11-11 13:25 | Outpatient (BNVA) | payer OTHER, SELFPAY | PROVIDERS: PCP Nurse Practitioner; Visit Provider Specialist | DX: G43.711 Chronic migraine without aura, intractable, with status migrainosus (principal) | CPT/HCPCS: 64615; J0585 ==

== ENCOUNTER → 2025-02-10 13:02 | Outpatient (BNVA) | payer OTHER, SELFPAY | PROVIDERS: PCP Nurse Practitioner; Visit Provider Specialist | DX: G43.711 Chronic migraine without aura, intractable, with status migrainosus (principal) | CPT/HCPCS: 64615; J0585; J9999 ==

== ENCOUNTER 2025-06-28 12:55 | Outpatient (CLI) | payer OTHER, SELFPAY ==
--- NOTE | 2025-06-28 13:01 | MR_ITS ---
WS: [id number] MRI BRAIN WITH AND WITHOUT CONTRAST HISTORY: DIZZINESS/SYNCOPE COMPARISON: 05/06/2023 TECHNIQUE: Multiplanar imaging performed through the brain with MultiHance 15 ml's IV. No acute infarcts are seen. Johnson-white matter differentiation is well preserved. Mild volume loss and small vessel disease. No obvious progression since the prior study from 05/06/2023. No large territory infarct. Posterior fossa is negative. Normal hippocampal formations. No susceptibility artifacts or prior lacunar infarcts. Ventricles and extra-axial spaces are normal. Clivus and pituitary gland are normal. Visualized posterior fossa and brainstem are also normal. Postcontrast images are negative for masses or vascular malformations. Dural venous sinuses are normal. Paranasal sinuses: Mucoperiosteal thickening in the sphenoid sinuses bilaterally but greatest on the LEFT. No air-fluid levels. Mastoid air cells: Normal. Calvarium and scalp: Normal. MR/MR head wo/w con [id number] IMPRESSION: 1. No acute infarct or hemorrhage. 2. Very mild stable white matter changes similar to the prior study from 2022. 3. No enhancing masses or vascular malformations. 4. Mild sphenoid sinusitis. 5. Normal hippocampal formations.
[2025-06-28] MEDS: gadobenate dimeglumine 20 mL vial 15 ML IV (13:41)
== END 2025-06-28 12:56 | disposition home or self-care (01) ==
LOC: RAD 12:57
PROVIDERS: PCP Nurse Practitioner; Visit Provider Nurse Practitioner
DX: I67.89 Other cerebrovascular disease (principal); G31.89 Other specified degenerative diseases of nervous system; J34.89 Other specified disorders of nose and nasal sinuses; J32.3 Chronic sphenoidal sinusitis
CPT/HCPCS: 70553